=== PATIENT | male | born 1960 | race Caucasian/White ===

== ENCOUNTER → 2016-08-17 | Outpatient (CLI) | payer OTHER | LOC: RAD 14:10 | PROVIDERS: ATTEND Internal Medicine Gastroenterology | DX: K70.31 Alcoholic cirrhosis of liver with ascites (principal); R60.0 Localized edema; R97.8 Other abnormal tumor markers | CPT/HCPCS: 74183; A9576 ==

== ENCOUNTER 2016-09-13 07:17 | Day surgery (SDC) | payer OTHER ==
[~2016-09-13 07:17] MED LIST: ALBUMIN HUMAN 250 ML IV PRN
[2016-09-13 08:34] LABS: HEMATOCRIT 36.8 % (37.9-51.0); HEMOGLOBIN 12.5 g/dL (13.5-17.0); HGB HCT DIFFERENCE 0.7; MEAN CORPUSCULAR HEMOGLOBIN 33.7 pg (27.0-33.4); MEAN CORPUSCULAR VOLUME 99 fl (80-97); RED BLOOD COUNT 3.71 10^6/uL (4.35-5.55); RED CELL DISTRIBUTION WIDTH 15.4 % (11.5-14.0); WHITE BLOOD COUNT 7.6 10^3/uL (4.0-10.5)
[2016-09-13 08:45] LABS: PROTHROMBIN TIME 14.9 SEC (11.4-15.4)
[2016-09-13 08:46] LABS: PARTIAL THROMBOPLASTIN TIME 31.4 SEC (23.5-35.8)
[2016-09-13 08:50] LABS: BLOOD UREA NITROGEN 9 mg/dL (7-20); CREATININE RESULT 0.77 mg/dL (0.52-1.25)
[2016-09-13 12:16] LABS: FLUID APPEARANCE HAZY; FLUID RBC SIDE 1 202; FLUID RBC SIDE 2 194; FLUID TYPE PERITONEAL
[2016-09-13 12:17] LABS: FLUID RBC DILUENT USED NONE USED; FLUID RBC DILUTION FACTOR 1; TOTAL RBC SQUARES COUNTED FLD 25
[2016-09-13 14:47] VITALS: BP 131/93
== END 2016-09-13 13:10 | disposition home or self-care (01) ==
LOC: RAD 07:17
PROVIDERS: ATTEND Internal Medicine Gastroenterology
PROC: 0W9G3ZZ Drainage of Peritoneal Cavity, Percutaneous Approach (ICD-10-PCS; principal; 2016-09-13)
DX: K70.31 Alcoholic cirrhosis of liver with ascites (principal); I10 Essential (primary) hypertension; F10.20 Alcohol dependence, uncomplicated; I85.00 Esophageal varices without bleeding; Z96.651 Presence of right artificial knee joint; K42.9 Umbilical hernia without obstruction or gangrene; I51.9 Heart disease, unspecified; I48.91 Unspecified atrial fibrillation; Z88.2 Allergy status to sulfonamides; Z91.19 Patient's noncompliance with other medical treatment and regimen; Z79.82 Long term (current) use of aspirin; Z79.899 Other long term (current) drug therapy
CPT/HCPCS: 36415; 84520; 82565; 85027; 85610; 85730; 89050; 82042; 88162; 49083; P9047

== ENCOUNTER → 2016-09-30 | Outpatient (CLI) | payer OTHER ==
[2016-09-30 17:22] LABS: HEMOGLOBIN 13.1 g/dL (13.5-17.0); HGB HCT DIFFERENCE 0.3; MEAN CORPUSCULAR HEMOGLOBIN 34.1 pg (27.0-33.4); MEAN CORPUSCULAR HGB CONC 33.5 g/dL (32.0-36.0); MEAN CORPUSCULAR VOLUME 102 fl (80-97); RED BLOOD COUNT 3.83 10^6/uL (4.35-5.55); RED CELL DISTRIBUTION WIDTH 15.3 % (11.5-14.0)
[2016-09-30 17:34] LABS: PROTHROMBIN TIME 14.6 SEC (11.4-15.4)
[2016-09-30 17:43] LABS: ALANINE AMINOTRANSFERASE 29 U/L (21-72); ALBUMIN 3.2 g/dL (3.5-5.0); ALKALINE PHOSPHATASE 177 U/L (38-126); ANION GAP 16 (5-19); ASPARTATE AMINO TRANSFERASE 69 U/L (17-59); BILIRUBIN,DIRECT 1.2 mg/dL (0.0-0.4); BILIRUBIN,TOTAL 2.5 mg/dL (0.2-1.3); BLOOD UREA NITROGEN 20 mg/dL (7-20); CALCIUM 8.8 mg/dL (8.4-10.2); CARBON DIOXIDE 25 mmol/L (22-30); CHLORIDE 88 mmol/L (98-107); CREATININE RESULT 1.54 mg/dL (0.52-1.25); GLUCOSE 111 mg/dL (75-110); SODIUM 129.2 mmol/L (137-145); TOTAL PROTEIN 6.8 g/dL (6.3-8.2)
== END ==
LOC: LAB 17:10
PROVIDERS: ATTEND Physician Assistant Surgical
DX: K70.31 Alcoholic cirrhosis of liver with ascites (principal); R60.0 Localized edema
CPT/HCPCS: 36415; 80053; 85027; 85610

== ENCOUNTER 2016-10-14 11:22 | Emergency (ER) | payer OTHER ==
[2016-10-14] MEDS ORDERED: NORMAL SALINE 1000 ML 1,000 ML IV ONE (12:01)
--- NOTE | 2016-10-14 12:01 | ER Document Report ---
ED Medical Screen (RME) - General Chief Complaint: Abdominal Pain Stated Complaint: CHEST PAINS, PAIN AT UMBILICAL AREA Time Seen by Provider: 10/14/16 11:58 Notes: Patient with a history of end-stage liver disease and cirrhosis with severe intermittent ascites who has had large quantities of fluid drained from his abdomen in the past. He says he leaned over last week and felt his umbilicus "ruptured" and came out and began leaking fluid, which is has continued to do. He says on that initial day his weight went from 237 pounds 287 pounds, a loss of 50 pounds! He noticed some redness developing around the umbilicus last night. He has not been aware of any fever. TRAVEL OUTSIDE OF THE [place] IN LAST 30 DAYS: No - Related Data Allergies/Adverse Reactions: Sulfa (Sulfonamide Antibiotics) Adverse Reaction (Verified 09/10/16 14:42) Hives Past Medical History - Social History Chew tobacco use (# tins/day): Yes Frequency of alcohol use: Occasional Drug Abuse: None - Past Medical History Cardiac Medical History: Reports: Hx Coronary Artery Disease, Hx Hypertension Denies: Hx Heart Attack Pulmonary Medical History: Denies: Hx Asthma, Hx Bronchitis, Hx COPD, Hx Pneumonia Neurological Medical History: Reports: Hx Cerebrovascular Accident - unsure date. Denies: Hx Seizures Renal/ Medical History: Denies: Hx Peritoneal Dialysis Musculoskeltal Medical History: Reports Hx Arthritis - Immunizations Hx Diphtheria, Pertussis, Tetanus Vaccination: Yes Physical Exam - Vital signs Vitals: Temp Pulse Resp BP Pulse Ox 97.3 F 113 H 12 79/52 L 100 10/14/16 11:37 10/14/16 11:37 10/14/16 11:37 10/14/16 11:37 10/14/16 11:37 Course - Vital Signs Vital signs: Temp Pulse Resp BP Pulse Ox 97.3 F 113 H 12 79/52 L 100 10/14/16 11:37 10/14/16 11:37 10/14/16 11:37 10/14/16 11:37 10/14/16 11:37
[2016-10-14] MEDS ORDERED: NORMAL SALINE 1000 ML 1,000 ML IV PRN (12:08)
[2016-10-14] MEDS ORDERED: ERTAPENEM SODIUM INJ 1 GM VIAL IV ONE (12:08)
[2016-10-14 12:22] LABS: HEMOGLOBIN 13.3 g/dL (13.5-17.0); HGB HCT DIFFERENCE -0.1; MEAN CORPUSCULAR HEMOGLOBIN 33.5 pg (27.0-33.4); MEAN CORPUSCULAR HGB CONC 33.2 g/dL (32.0-36.0); MEAN CORPUSCULAR VOLUME 101 fl (80-97); RED BLOOD COUNT 3.97 10^6/uL (4.35-5.55); RED CELL DISTRIBUTION WIDTH 14.7 % (11.5-14.0); WHITE BLOOD COUNT 26.1 10^3/uL (4.0-10.5)
--- NOTE | 2016-10-14 12:32 | ER Document Report ---
ED General - General Chief Complaint: Abdominal Pain Stated Complaint: CHEST PAINS, PAIN AT UMBILICAL AREA Time Seen by Provider: 10/14/16 11:58 Mode of Arrival: Wheelchair Information source: Patient Notes: 55 yr old male hx of alcoholic ascites presents with complaints of abdominal pain. Pt admits to fevers, denies any chills. Pt notes he struck his abdomen 1 week ago and drained 50 lb of ascites. Pt found hypotensive and tachycardic. TRAVEL OUTSIDE OF THE [place] IN LAST 30 DAYS: No - HPI Onset: Last week Onset/Duration: Persistent Quality of pain: Achy Severity: Moderate Pain Level: 3 Associated symptoms: Fever, Weakness Exacerbated by: Movement Relieved by: Denies Similar symptoms previously: No Recently seen / treated by doctor: No - Related Data Allergies/Adverse Reactions: Sulfa (Sulfonamide Antibiotics) Adverse Reaction (Verified 09/10/16 14:42) Hives Past Medical History - Social History Smoking Status: Never Smoker Cigarette use (# per day): No Chew tobacco use (# tins/day): Yes Smoking Education Provided: No Frequency of alcohol use: Occasional Drug Abuse: None Family History: Reviewed & Not Pertinent - Past Medical History Cardiac Medical History: Reports: Hx Coronary Artery Disease, Hx Hypertension Denies: Hx Heart Attack Pulmonary Medical History: Denies: Hx Asthma, Hx Bronchitis, Hx COPD, Hx Pneumonia Neurological Medical History: Reports: Hx Cerebrovascular Accident - unsure date. Denies: Hx Seizures Renal/ Medical History: Denies: Hx Peritoneal Dialysis Musculoskeltal Medical History: Reports Hx Arthritis - Immunizations Hx Diphtheria, Pertussis, Tetanus Vaccination: Yes Review of Systems - Review of Systems Notes: PHYSICAL EXAMINATION: GENERAL: ill appearing male HEAD: Atraumatic, normocephalic. EYES: Pupils equal round and reactive to light, extraocular movements intact, sclera anicteric, conjunctiva are normal. ENT: Nares patent, oropharynx clear without exudates. Moist mucous membranes. NECK: Normal range of motion, supple without lymphadenopathy LUNGS: Breath sounds clear to auscultation bilaterally and equal. No wheezes rales or rhonchi. HEART: Regular rate and rhythm without murmurs ABDOMEN: umbilical redundant tissue is cellulitic with fluctuance. dozens of small maggots notes Musculoskeletal: Normal range of motion, no pitting or edema. No cyanosis. NEUROLOGICAL: Cranial nerves grossly intact. Normal speech, normal gait. Normal sensory, motor exams PSYCH: Normal mood, normal affect. Physical Exam - Vital signs Vitals: Temp Pulse Resp BP Pulse Ox 97.3 F 113 H 12 79/52 L 100 10/14/16 11:37 10/14/16 11:37 10/14/16 11:37 10/14/16 11:37 10/14/16 11:37 Course - Re-evaluation Re-evalutation: 10/14/16 12:32 I immediately contacted our surgeon after exposing the area and noting that patient has maggots. He is septic from this redundant tissue , hypotensive on arrival, iv fluid resuscitation immediately started 10/14/16 12:[address] [facility] [address] Henderson evaluated patient, spoke with hospitalist and requests transfer 10/14/16 13:29 Dr Morrissey [facility] has accepted patient 10/14/16 14:28 blood pressure has improved. - Vital Signs Vital signs: Temp Pulse Resp BP Pulse Ox 97.3 F 113 H 17 113/94 H 100 10/14/16 11:37 10/14/16 11:37 10/14/16 13:01 10/14/16 13:01 10/14/16 13:01 - Laboratory Result Diagrams: 10/14/16 12:00 10/14/16 12:00 Laboratory results interpreted by me: 10/14/16 10/14/16 10/14/16 12:00 12:00 12:00 WBC 26.1 H RBC 3.97 L Hgb 13.3 L MCV 101 H MCH 33.5 H RDW 14.7 H Band Neutrophils % 7 H Lymphocytes % (Manual) 5 L Metamyelocytes % 2 H Abs Neuts (Manual) 22.2 H Abs Monocytes (Manual) 2.3 H PT 16.2 H Sodium 123.7 L Chloride 86 L BUN 80 H Creatinine 3.46 H Est GFR ( Amer) 23 L Est GFR (Non-Af Amer) 19 L Glucose 121 H Total Bilirubin 2.2 H Direct Bilirubin 1.3 H Alkaline Phosphatase 138 H Albumin 2.8 L Lipase 467.6 H Discharge - Discharge Clinical Impression: Sepsis Qualifiers: Sepsis type: sepsis due to unspecified organism Qualified Code(s): A41.9 - Sepsis, unspecified organism Cellulitis Qualifiers: Site of cellulitis: trunk Site of cellulitis of trunk: abdominal wall Qualified Code(s): L03.311 - Cellulitis of abdominal wall Hypotension Qualifiers: Hypotension type: unspecified hypotension type Qualified Code(s): I95.9 - Hypotension, unspecified Ascites Qualifiers: Ascites type: due to alcoholic cirrhosis Qualified Code(s): K70.31 - Alcoholic cirrhosis of liver with ascites Condition: Critical [facility]position: [facility] Referrals: KELSI STRANGE PA-C [Primary Care Provider] - Follow up as needed
[2016-10-14 12:34] LABS: PROTHROMBIN TIME 16.2 SEC (11.4-15.4)
[2016-10-14 12:54] LABS: BAND NEUTROPHILS % (MANUAL) 7 % (3-5); BASOPHILS % (MANUAL) 0 % (0-2); EOSINOPHILS % (MANUAL) 0 % (0-6); LYMPHOCYTES % (MANUAL) 5 % (13-45); NUCLEATED RED BLOOD CELLS 1 /100 WBC (0); TOTAL CELLS COUNTED 100
[2016-10-14 12:59] LABS: ANISOCYTOSIS SLIGHT; PLATELET CLUMPS PRESENT; POLYCHROMASIA SLIGHT
[2016-10-14 13:08] LABS: ALANINE AMINOTRANSFERASE 27 U/L (21-72); ALBUMIN 2.8 g/dL (3.5-5.0); ALKALINE PHOSPHATASE 138 U/L (38-126); ANION GAP 13 (5-19); ASPARTATE AMINO TRANSFERASE 28 U/L (17-59); BILIRUBIN,DIRECT 1.3 mg/dL (0.0-0.4); BILIRUBIN,TOTAL 2.2 mg/dL (0.2-1.3); BLOOD UREA NITROGEN 80 mg/dL (7-20); CALCIUM 8.6 mg/dL (8.4-10.2); CARBON DIOXIDE 25 mmol/L (22-30); CHLORIDE 86 mmol/L (98-107); CREATININE RESULT 3.46 mg/dL (0.52-1.25); GLUCOSE 121 mg/dL (75-110); LIPASE 467.6 U/L (23-300); POTASSIUM 3.9 mmol/L (3.6-5.0); SODIUM 123.7 mmol/L (137-145); TOTAL PROTEIN 6.6 g/dL (6.3-8.2)
--- NOTE | 2016-10-14 13:48 | PDOC CONSULTATION ---
History of Present Illness Admission Date/PCP: KELSI STRANGE PA-C Patient complains of: Chest pain and drainage from umbilical hernia History of Present Illness: TYLER ARIAS is a 55 year old male with long history of alcoholic cirrhosis with ongoing alcohol abuse and refractory ascites requiring diuretic therapy and frequent admissions for paracentesis. Patient has required multiple admissions at [facility] for drainage of his ascites. He noticed last week rupture of the long-standing umbilical hernia with a resultant drainage of ascites. This region has developed erythema with ulceration inferiorly. He comes in today to the emergency department with complaints of substernal chest pain and abdominal discomfort. Unknown whether he has had any fever. He denies any prior history of gastrointestinal bleed. He had been on Plavix in the past but not currently. He has a history of atrial fib with a prior mini stroke in the past. He has had no prior abdominal surgeries. Past Medical History Cardiac Medical History: Reports: Atrial Fibrillation, Coronary Artery Disease, Hypertension Denies: Myocardial Infarction Pulmonary Medical History: Denies: Asthma, Bronchitis, Chronic Obstructive Pulmonary Disease (COPD), Pneumonia Neurological Medical History: Denies: Seizures GI Medical History: Reports: Cirrhosis Musculoskeltal Medical History: Reports: Arthritis Psychiatric Medical History: Reports: Alcohol Dependency Hematology: Denies: Anemia Past Surgical History Past Surgical History: Reports: Knee Replacement Social History Smoking Status: Never Smoker Frequency of Alcohol Use: Heavy Family History Parental Family History Reviewed: No Children Family History Reviewed: No Sibling(s) Family History Reviewed.: No Medication/Allergy Home Medications: Aspirin [Ecotrin 81 mg EC Tablet] 1 tab PO DAILY 09/13/16 Digoxin 1 tab PO DAILY 09/13/16 Diltiazem HCl [Diltiazem 12Hr ER] 1 tab PO BID 09/13/16 Furosemide [Lasix] 1 tab PO BID 09/13/16 Nadolol 1 tab PO DAILY 09/13/16 Omeprazole 1 tab PO DAILY 09/13/16 Zolpidem Tartrate [Ambien] 1 tab PO HSP PRN 09/13/16 Allergies/Adverse Reactions: Sulfa (Sulfonamide Antibiotics) Adverse Reaction (Verified 09/10/16 14:42) Hives Physical Exam Vital Signs: Temp Pulse Resp BP Pulse Ox 97.3 F 113 H 13 79/52 L 100 10/14/16 11:37 10/14/16 11:37 10/14/16 12:35 10/14/16 11:37 10/14/16 11:37 Intake & Output 10/13/16 10/14/16 10/15/16 06:59 06:59 06:59 Weight 81.8 kg General appearance: PRESENT: no acute distress, cooperative Respiratory exam: PRESENT: clear to auscultation carolyn Cardiovascular exam: PRESENT: irregular rhythm GI/Abdominal exam: PRESENT: other - Soft, very mild diffuse abdominal tenderness. Protuberant but not tight. Egg sized umbilical hernia with marked erythema with ulceration of the skin that is full-thickness but no active drainage at this time. Results Laboratory Results: 10/14/16 12:00 10/14/16 12:00 10/14/16 10/14/16 12:00 12:00 WBC 26.1 H RBC 3.97 L Hgb 13.3 L Hct 40.0 MCV 101 H MCH 33.5 H MCHC 33.2 RDW 14.7 H Plt Count 357 Seg Neutrophils % Not Reportable Lymphocytes % Not Reportable Monocytes % Not Reportable Eosinophils % Not Reportable Basophils % Not Reportable Absolute Neutrophils Not Reportable Absolute Lymphocytes Not Reportable Absolute Monocytes Not Reportable Absolute Eosinophils Not Reportable Absolute Basophils Not Reportable Sodium 123.7 L Potassium 3.9 Chloride 86 L Carbon Dioxide 25 Anion Gap 13 BUN 80 H Creatinine 3.46 H Est GFR ( Amer) 23 L Est GFR (Non-Af Amer) 19 L Glucose 121 H Calcium 8.6 Total Bilirubin 2.2 H AST 28 ALT 27 Alkaline Phosphatase 138 H Total Protein 6.6 Albumin 2.8 L Lipase 467.6 H Assessment & Plan - Diagnosis (1) Umbilical hernia Is this a current diagnosis for this admission?: YesPlan: Umbilical hernia with the skin necrosis and surrounding infection and sepsis in the setting of cirrhosis with refractory ascites. Patient has improved with the fluid resuscitation with clear mentation and systolic blood pressure of 110 now. patient has evidence of hepatorenal syndrome. Patient would be better served at a tertiary care hospital for medical management of his sepsis and complicated end-stage cirrhosis and surgical treatment of his umbilicla hernia. I have discussed this matter with the emergency room physician who will arrange transfer.
[2016-10-14] MEDS ORDERED: HYDROMORPHONE HCL INJ/PF 2 MG/ML AMPULE IV ONE ×2 (13:51→15:35)
[2016-10-14] MEDS: NORMAL SALINE 1000 ML 1,000 ML IV PRN ×2 (14:10→15:32)
[2016-10-14 14:30] LABS: VENOUS BLOOD BASE EXCESS -3.1 mmol/L; VENOUS BLOOD HCO3 23.5 mmol/L (20-32); VENOUS BLOOD PCO2 47.9 mmHg (35-63); VENOUS BLOOD PH 7.31 (7.30-7.42)
[2016-10-14 15:00] LABS: CREATINE KINASE MB 1.11 ng/mL (<4.55)
[2016-10-14 15:06] LABS: TROPONIN I < 0.012 ng/mL
[2016-10-14 15:36] VITALS: BP 103/82
--- NOTE | 2016-10-14 18:32 | EKG REPORT ---
SEVERITY:- ABNORMAL ECG - ATRIAL FIBRILLATION, V-RATE 71-109 : Confirmed by: Elder Henley MD 14-Oct-2016 18:31:38
== END 2016-10-14 15:45 | disposition short-term general hospital (02) ==
LOC: ER 11:22
DX: A41.9 Sepsis, unspecified organism (principal); L03.311 Cellulitis of abdominal wall; K70.31 Alcoholic cirrhosis of liver with ascites; I95.9 Hypotension, unspecified; R50.9 Fever, unspecified; R00.0 Tachycardia, unspecified; R53.1 Weakness; I25.10 Atherosclerotic heart disease of native coronary artery without angina pectoris; I10 Essential (primary) hypertension; Z86.73 Personal history of transient ischemic attack (TIA), and cerebral infarction without residual deficits
CPT/HCPCS: 93005; 96376; 99285; 96375; 96365; 36415; 87040; 82553; 82550; 83690; 85025; 85610; 80053; 84484; 82803; 83605; 93010; J1335; J1170; J7030

== ENCOUNTER 2016-12-10 03:54 | Inpatient (IN) | payer OTHER ==
--- NOTE | 2016-12-10 05:38 | ER Document Report ---
ED Medical Screen (RME) - General Chief Complaint: Leg Swelling Stated Complaint: FALL Time Seen by Provider: 12/10/16 05:28 Mode of Arrival: Medic Information source: Patient Notes: 56-year-old male presents to ED due to increased swelling in bilateral lower legs with weeping for the last 2 days. He states he did not take his Lasix 3 days last week but he knows that he took it Tuesday and of this week take 60 mg a day. He is has ascites that has not been tapped in the last 6 weeks and he says that it is starting to get to the point where he needs to have the fluid drained. His lungs are clear at this time but he does have 4 + pitting edema with weeping especially to the right leg. I have greeted and performed a rapid initial assessment of this patient. A comprehensive ED assessment and evaluation of the patient, analysis of test results and completion of medical decision making process will be conducted by an additional ED providers. TRAVEL OUTSIDE OF THE [place] IN LAST 30 DAYS: No - HPI Associated Symptoms: Leg swelling - 4+ with sleeping, Other - Abdomen is very distended ascites Exacerbated by: Walking Similar symptoms previously: Yes - Related Data Allergies/Adverse Reactions: Sulfa (Sulfonamide Antibiotics) Adverse Reaction (Verified 09/10/16 14:42) Andressa Past Medical History - Past Medical History Cardiac Medical History: Reports: Hx Atrial Fibrillation, Hx Coronary Artery Disease, Hx Hypertension Denies: Hx Heart Attack Pulmonary Medical History: Denies: Hx Asthma, Hx Bronchitis, Hx COPD, Hx Pneumonia Neurological Medical History: Reports: Hx Cerebrovascular Accident - unsure date. Denies: Hx Seizures Renal/ Medical History: Denies: Hx Peritoneal Dialysis GI Medical History: Reports: Hx Cirrhosis Musculoskeltal Medical History: Reports Hx Arthritis - Immunizations Hx Diphtheria, Pertussis, Tetanus Vaccination: Yes Physical Exam - Vital signs Vitals: Temp Pulse Resp BP Pulse Ox 97.5 F 103 H 20 130/103 H 100 12/10/16 04:04 12/10/16 04:04 12/10/16 04:04 12/10/16 04:04 12/10/16 04:04 Course - Vital Signs Vital signs: Temp Pulse Resp BP Pulse Ox 97.5 F 103 H 20 130/103 H 100 12/10/16 04:04 12/10/16 04:04 12/10/16 04:04 12/10/16 04:04 12/10/16 04:04
[2016-12-10] MEDS ORDERED: ERTAPENEM SODIUM INJ 1 GM VIAL IV ONE (06:18)
--- NOTE | 2016-12-10 06:19 | ER Document Report ---
ED General - General Chief Complaint: Leg Swelling Stated Complaint: FALL Time Seen by Provider: 12/10/16 05:28 Mode of Arrival: Medic Information source: Patient Notes: 56-year-old male history of ascites presents with complaints of lower extremity edema. Patient notes he thinks he has cellulitis. Denies any fevers but admits his legs feel warm to touch Patient last had paracentesis 6 weeks ago TRAVEL OUTSIDE OF THE [place] IN LAST 30 DAYS: No - HPI Onset: Yesterday Onset/Duration: Sudden Quality of pain: Achy Severity: Mild Pain Level: 1 Associated symptoms: Shortness of breath, Other Exacerbated by: Denies Relieved by: Denies Similar symptoms previously: Yes Recently seen / treated by doctor: Yes - Related Data Allergies/Adverse Reactions: Sulfa (Sulfonamide Antibiotics) Adverse Reaction (Verified 09/10/16 14:42) Hives Past Medical History - General Information source: Patient - Social History Smoking Status: Never Smoker Cigarette use (# per day): No Chew tobacco use (# tins/day): No Smoking Education Provided: No Family History: Reviewed & Not Pertinent Patient has suicidal ideation: No Patient has homicidal ideation: No - Past Medical History Cardiac Medical History: Reports: Hx Atrial Fibrillation, Hx Coronary Artery Disease, Hx Hypertension Denies: Hx Heart Attack Pulmonary Medical History: Denies: Hx Asthma, Hx Bronchitis, Hx COPD, Hx Pneumonia Neurological Medical History: Reports: Hx Cerebrovascular Accident - unsure date. Denies: Hx Seizures Renal/ Medical History: Denies: Hx Peritoneal Dialysis GI Medical History: Reports: Hx Cirrhosis Musculoskeltal Medical History: Reports Hx Arthritis - Immunizations Hx Diphtheria, Pertussis, Tetanus Vaccination: Yes Review of Systems - Review of Systems Notes: REVIEW OF SYSTEMS: CONSTITUTIONAL : Denies fever, chills, or sweats. Denies recent illness. EENT: Denies eye, ear, throat, or mouth pain or symptoms. Denies nasal or sinus congestion or discharge. Denies throat, tongue, or mouth swelling or difficulty swallowing. CARDIOVASCULAR: Denies chest pain. Denies palpitations or racing or irregular heart beat. Denies ankle edema. RESPIRATORY: Denies cough, cold, or chest congestion. Denies shortness of breath, difficulty breathing, or wheezing. GASTROINTESTINAL: abd distension GENITOURINARY: Denies difficulty urinating, painful urination, burning, frequency, blood in urine, or discharge. MUSCULOSKELETAL: Denies back or neck pain or stiffness. Denies joint pain or swelling. SKIN: lower extremity edema HEMATOLOGIC : Denies easy bruising or bleeding. LYMPHATIC: Denies swollen, enlarged glands. NEUROLOGICAL: Denies confusion or altered mental status. Denies passing out or loss of consciousness. Denies dizziness or lightheadedness. Denies headache. Denies weakness or paralysis or loss of use of either side. Denies problems with gait or speech. Denies sensory loss, numbness, or tingling. Denies seizures. PSYCHIATRIC: Denies anxiety or stress. Denies depression, suicidal ideation, or homicidal ideation. ALL OTHER SYSTEMS REVIEWED AND NEGATIVE. Dictation was performed using [employer] voice recognition software PHYSICAL EXAMINATION: GENERAL: overall ill appearing male HEAD: Atraumatic, normocephalic. EYES: Pupils equal round and reactive to light, extraocular movements intact, sclera anicteric, conjunctiva are normal. ENT: Nares patent, oropharynx clear without exudates. Moist mucous membranes. NECK: Normal range of motion, supple without lymphadenopathy LUNGS: coarse rhonchi left base HEART: Regular rate and rhythm without murmurs ABDOMEN: distended abdomen, fluid level noted Musculoskeletal: Normal range of motion, no pitting or edema. No cyanosis. NEUROLOGICAL: Cranial nerves grossly intact. Normal speech, normal gait. Normal sensory, motor exams PSYCH: Normal mood, normal affect. SKIN: bilateral pitting edemal +4 ., cellulites, with abdomen cellulites noted Physical Exam - Vital signs Vitals: Temp Pulse Resp BP Pulse Ox 97.5 F 103 H 20 130/103 H 100 12/10/16 04:04 12/10/16 04:04 12/10/16 04:04 12/10/16 04:04 12/10/16 04:04 Course - Re-evaluation Re-evalutation: 12/10/16 06:20 Patient has obvious cellulitis with 3+ pitting edema of bilateral lower extremities, he unfortunately also has cellulitis of his abdomen with concerns for peritonitis, he will be started on Invanz immediately patient will be admitted to the hospital 12/10/16 09:06 - Vital Signs Vital signs: Temp Pulse Resp BP Pulse Ox 97.5 F 103 H 14 125/88 H 100 12/10/16 04:04 12/10/16 04:04 12/10/16 07:00 12/10/16 06:30 12/10/16 07:00 - Laboratory Result Diagrams: 12/10/16 06:30 12/10/16 06:30 Laboratory results interpreted by me: 12/10/16 12/10/16 12/10/16 06:30 06:30 06:30 WBC 12.3 H RBC 3.10 L Hgb 9.3 L Hct 28.1 L RDW 15.4 H Lymphocytes % 11.9 L Absolute Neutrophils 9.5 H PT APTT Sodium 133.2 L Potassium 3.3 L BUN 25 H Creatinine 1.76 H Est GFR ( Amer) 49 L Est GFR (Non-Af Amer) 41 L Calcium 7.8 L Direct Bilirubin 0.6 H NT-Pro-B Natriuret Pep 5200 H Total Protein 6.0 L Albumin 2.7 L 12/10/16 06:30 WBC RBC Hgb Hct RDW Lymphocytes % Absolute Neutrophils PT 16.2 H APTT 40.3 H Sodium Potassium BUN Creatinine Est GFR ( Amer) Est GFR (Non-Af Amer) Calcium Direct Bilirubin NT-Pro-B Natriuret Pep Total Protein Albumin - Diagnostic Test Radiology reviewed: Image reviewed, Reports reviewed - Left pleural effusion Discharge - Discharge Clinical Impression: Spontaneous bacterial peritonitis, Pitting edema, Tachycardia, Pleural effusion Cellulitis Qualifiers: Site of cellulitis: extremity Site of cellulitis of extremity: lower extremity Laterality: unspecified laterality Qualified Code(s): L03.119 - Cellulitis of unspecified part of limb Condition: Stable Disposition: ADMITTED INPATIENT Admitting Provider: Hospitalist Unit Admitted: Telemetry
[2016-12-10 07:21] LABS: ABSOLUTE LYMPHOCYTES (AUTO) 1.5 10^3/uL (0.5-4.7); ABSOLUTE MONOCYTES (AUTO) 1.2 10^3/uL (0.1-1.4); ABSOLUTE NEUT (AUTO) 9.5 10^3/uL (1.7-8.2); BASOPHILS % (AUTO) 0.3 % (0-2); EOSINOPHILS % (AUTO) 0.3 % (0-6); HEMATOCRIT 28.1 % (37.9-51.0); HEMOGLOBIN 9.3 g/dL (13.5-17.0); HGB HCT DIFFERENCE -0.2; LYMPHOCYTES % (AUTO) 11.9 % (13-45); MEAN CORPUSCULAR HEMOGLOBIN 30.1 pg (27.0-33.4); MEAN CORPUSCULAR HGB CONC 33.2 g/dL (32.0-36.0); MEAN CORPUSCULAR VOLUME 91 fl (80-97); MONOCYTES % (AUTO) 9.9 % (3-13); RED CELL DISTRIBUTION WIDTH 15.4 % (11.5-14.0); SEGMENTED NEUTROPHILS % (AUTO) 77.6 % (42-78); WHITE BLOOD COUNT 12.3 10^3/uL (4.0-10.5)
--- NOTE | 2016-12-10 07:22 | RADIOLOGY REPORT (SQ) ---
EXAM DESCRIPTION: CHEST PA/LAT COMPLETED DATE/TIME: 12/10/2016 7:08 am REASON FOR STUDY: Ascites, bilateral leg edema COMPARISON: None. EXAM PARAMETERS: NUMBER OF VIEWS: two views TECHNIQUE: Digital Frontal and Lateral radiographic views of the chest acquired. RADIATION DOSE: NA LIMITATIONS: none FINDINGS: LUNGS AND PLEURA: Left basilar density with pleural effusion. Right lung relatively clear . MEDIASTINUM AND HILAR STRUCTURES: No masses or contour abnormalities. HEART AND VASCULAR STRUCTURES: Heart normal size. No evidence for failure. BONES: No acute findings. HARDWARE: None in the chest. OTHER: No other significant finding. IMPRESSION: LEFT PLEURAL EFFUSION. LEFT BASILAR ATELECTASIS VERSUS EARLY INFILTRATE. TECHNICAL DOCUMENTATION: JOB ID: [id number] [employer]- All Rights Reserved
[2016-12-10 07:25] LABS: PROTHROMBIN TIME 16.2 SEC (11.4-15.4)
[2016-12-10 07:26] LABS: PARTIAL THROMBOPLASTIN TIME 40.3 SEC (23.5-35.8)
[2016-12-10 07:27] LABS: ALANINE AMINOTRANSFERASE 28 U/L (21-72); ALBUMIN 2.7 g/dL (3.5-5.0); ALKALINE PHOSPHATASE 111 U/L (38-126); ANION GAP 10 (5-19); ASPARTATE AMINO TRANSFERASE 27 U/L (17-59); BILIRUBIN,DIRECT 0.6 mg/dL (0.0-0.4); BILIRUBIN,TOTAL 1.3 mg/dL (0.2-1.3); BLOOD UREA NITROGEN 25 mg/dL (7-20); CALCIUM 7.8 mg/dL (8.4-10.2); CARBON DIOXIDE 23 mmol/L (22-30); CHLORIDE 100 mmol/L (98-107); CREATININE RESULT 1.76 mg/dL (0.52-1.25); GLUCOSE 106 mg/dL (75-110); POTASSIUM 3.3 mmol/L (3.6-5.0); SODIUM 133.2 mmol/L (137-145)
[2016-12-10] MEDS ORDERED: ONDANSETRON HCL INJ/PF 4 MG/2 ML SDV IV PRN (07:39)
[2016-12-10] MEDS ORDERED: ZOLPIDEM TARTRATE 5 MG TABLET PO PRN (07:39)
[2016-12-10] MEDS ORDERED: ACETAMINOPHEN 325 MG TABLET PO PRN (07:39)
[2016-12-10] MEDS ORDERED: IPRATROPIUM/ALBUTEROL 0.5-2.5 MG/3 ML AMPUL NEB PRN (07:39)
[2016-12-10] MEDS ORDERED: LORAZEPAM INJ 2 MG/1 ML VIAL IV PRN (07:45)
[2016-12-10] MEDS ORDERED: VANCOMYCIN HCL 0 MG in DEXTROSE 5%-WATER 250 ML IV NR (08:00)
[2016-12-10] MEDS ORDERED: FUROSEMIDE INJ/PF 20 MG/2 ML SDV IV ONE (08:46)
[2016-12-10] MEDS ORDERED: POTASSIUM CHLORIDE 10 MEQ TABLET.SA PO ONE (08:47)
[2016-12-10 09:14] LABS: APPEARANCE,URINE CLEAR; BILIRUBIN,URINE NEGATIVE (NEGATIVE); GLUCOSE, URINE NEGATIVE (NEGATIVE); KETONES,URINE NEGATIVE (NEGATIVE); LEUKOCYTE ESTERASE,URINE NEGATIVE (NEGATIVE); NITRITE,URINE NEGATIVE (NEGATIVE); PROTEIN,URINE NEGATIVE (NEGATIVE); URINE SPECIFIC GRAVITY 1.016; UROBILINOGEN,URINE NEGATIVE mg/dL (<2.0)
[2016-12-10] MEDS ORDERED: FUROSEMIDE INJ/PF 40 MG/4 ML SDV IV ONE (09:30)
--- NOTE | 2016-12-10 11:28 | RADIOLOGY REPORT (SQ) ---
EXAM DESCRIPTION: U/S ABD PARACENTESIS COMPLETED DATE/TIME: 12/10/2016 11:12 am REASON FOR STUDY: ascites COMPARISON None. LIMITATIONS: None. PROCEDURE: After obtaining informed consent, the patient was brought to the ultrasound suite. The p rocedure was performed with the patient on a gurney. Ultrasound was used to identify a prominent poc ket of ascites in the right lower quadrant. An appropriate access site was selected. The patient wa s prepped and draped in usual sterile fashion. The access site was anesthetized with 10 mL 1% lidoc hayde. A Xvij-X-Mjjrtuoa needle was advanced into the fluid. After aspiration of fluid the needle, t he catheter was advanced off the needle into the fluid. A total of 9th out mL of sherif colored fluid was removed. The patient tolerated the procedure well left the department in satisfactory condition. IMPRESSION: Successful ultrasound-guided paracentesis COMMENT: Patient medication list reviewed: Yes Quality ID #[id number]: The patient was prepped and draped using maximum sterile barrier technique including cap, mask, sterile gown, sterile gloves, a large sterile sheet, hand hygiene, and 2% Chlorhexidine fo r cutaneous antisepsis. When ultrasound is used, sterile ultrasound techniques are followed requiring sterile gel and sterile probes. Quality ID #[id number]: Final reports for procedures using fluoroscopy that document radiation exposure baljinder sixto, or exposure time and number of fluorographic images (if radiation exposure indices are not avail able) TECHNICAL DOCUMENTATION: JOB ID: [id number] [employer]- All Rights Reserved
[2016-12-10] MEDS ORDERED: DIAZEPAM 5 MG TABLET PO SCH (12:00)
[2016-12-10 12:25] LABS: FLUID TYPE PERITONEAL
[2016-12-10 12:26] LABS: FLUID APPEARANCE HAZY; FLUID RBC AVERAGE 304.5; FLUID RBC DILUENT USED NONE USED; FLUID RBC DILUTION FACTOR 1; FLUID RBC SIDE 1 296; FLUID RBC SIDE 2 313; TOTAL RBC SQUARES COUNTED FLD 25
[2016-12-10] MEDS ORDERED: (PENDING PHARMACY ID) (Zolpidem Tartrate [Ambien] 10 MG) PO PRN (12:56)
[2016-12-10] MEDS: ALBUMIN HUMAN 50 ML IV SCH ×4 (13:00→15:50)
[2016-12-10] MEDS: VANCOMYCIN HCL 750 MG in DEXTROSE 5%-WATER 250 ML IV SCH ×2 (14:48→21:57)
[2016-12-10] MEDS: TRAMADOL HCL 50 MG TABLET PO PRN (14:48)
[2016-12-10] MEDS: POTASSI CL 20 MEQ/50 ML RIDER 50 ML IV SCH ×2 (14:49→16:44)
[2016-12-10] MEDS: PIPERACILLIN SODIUM/TAZOBACTAM 3.375 GM in NORMAL SALINE 100 ML IV SCH ×3 (14:49→23:53)
--- NOTE | 2016-12-10 15:30 | PDOC H&P ---
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 He was hospitalized 6 weeks ago in [place] to paracentesis 1 from 9 L of fluid removed and 1 for 5 L of fluid removed. He has abstained from alcohol since that time. Discharged on Aldactone and Lasix therapy he states he has not been taking the Lasix for the last several days because he lost the bottle. He notes his abdomen has also increased in size over the last 2 weeks. Nausea, vomiting, abdominal pain. Past Medical History Cardiac Medical History: Reports: Atrial Fibrillation, Coronary Artery Disease, Hypertension Denies: Myocardial Infarction Pulmonary Medical History: Denies: Asthma, Bronchitis, Chronic Obstructive Pulmonary Disease (COPD), Pneumonia EENT Medical History: Reports: None Neurological Medical History: Reports: None Denies: Seizures Endocrine Medical History: Reports: None Renal/ Medical History: Reports: None Malignancy Medical History: Reports: None GI Medical History: Reports: Cirrhosis, Gastroesophageal Reflux Disease Musculoskeltal Medical History: Reports: Arthritis Skin Medical History: Reports: None Psychiatric Medical History: Reports: Alcohol Dependency - He has abstained from alcohol the last 2 months he reports Traumatic Medical History: Reports: None Hematology: Reports: None Denies: Anemia Infectious Medical History: Reports: None Past Surgical History Past Surgical History: Reports: Orthopedic Surgery - Right knee replacement Social History Information Source: Patient Lives with: Family Smoking Status: Never Smoker Frequency of Alcohol Use: Heavy - He has abstained over the last 2 weeks Hx Recreational Drug Use: No Drugs: None Hx Prescription Drug Abuse: No - Advance Directive Resuscitation Status: Full Code Family History Family History: Hypertension Parental Family History Reviewed: Yes Children Family History Reviewed: NA Sibling(s) Family History Reviewed.: Yes Medication/Allergy Home Medications: Digoxin [Lanoxin 0.125 mg Tablet] 0.125 mg PO DAILY 12/10/16 Diltiazem HCl [Cardizem] 120 mg PO DAILY 12/10/16 Furosemide [Lasix] 40 mg PO BID 12/10/16 Nadolol [Corgard] 10 mg PO DAILY 12/10/16 Omeprazole [Omeprazole] 20 mg PO DAILY 12/10/16 Spironolactone [Aldactone 100 mg Tablet] 100 mg PO DAILY 12/10/16 Tramadol HCl [Ultram 50 mg Tablet] 50 mg PO Q8 PRN 12/10/16 Zolpidem Tartrate [Ambien] 10 mg PO HSP PRN 12/10/16 Allergies/Adverse Reactions: Sulfa (Sulfonamide Antibiotics) Adverse Reaction (Verified 09/10/16 14:42) Hives Review of Systems Constitutional: PRESENT: weakness. ABSENT: chills, fever(s), headache(s), weight gain, weight loss Eyes: ABSENT: visual disturbances Ears: ABSENT: hearing changes Cardiovascular: ABSENT: chest pain, dyspnea on exertion, edema, orthropnea, palpitations Respiratory: ABSENT: cough, hemoptysis Gastrointestinal: ABSENT: abdominal pain, constipation, diarrhea, hematemesis, hematochezia, nausea, vomiting Genitourinary: ABSENT: dysuria, hematuria Musculoskeletal: ABSENT: joint swelling Integumentary: ABSENT: rash, wounds Neurological: ABSENT: abnormal gait, abnormal speech, confusion, dizziness, focal weakness, syncope Psychiatric: ABSENT: anxiety, depression, homidical ideation, suicidal ideation Endocrine: ABSENT: cold intolerance, heat intolerance, polydipsia, polyuria Hematologic/Lymphatic: ABSENT: easy bleeding, easy bruising Physical Exam Vital Signs: Temp Pulse Resp BP Pulse Ox 97.5 F 90 16 123/90 H 99 12/10/16 11:42 12/10/16 13:57 12/10/16 13:57 12/10/16 11:42 12/10/16 11:42 Intake & Output 12/09/16 12/10/16 12/11/16 06:59 06:59 06:59 Weight 87.5 kg General appearance: PRESENT: no acute distress, well-developed, well-nourished Head exam: PRESENT: atraumatic, normocephalic Eye exam: PRESENT: conjunctiva pink, EOMI, PERRLA. ABSENT: scleral icterus Ear exam: PRESENT: normal external ear exam Mouth exam: PRESENT: moist, tongue midline Teeth exam: PRESENT: poor dentation Neck exam: ABSENT: carotid bruit, JVD, lymphadenopathy, thyromegaly Respiratory exam: PRESENT: decreased breath sounds, symmetrical, unlabored - right base Cardiovascular exam: PRESENT: irregular rhythm, +S1, +S2 Pulses: PRESENT: normal carotid pulses, normal radial pulses Vascular exam: PRESENT: normal capillary refill GI/Abdominal exam: PRESENT: ascites, hypoactive bowel sounds, soft Rectal exam: PRESENT: deferred Extremities exam: PRESENT: other - Anasarca of bilateral lower extremities Musculoskeletal exam: PRESENT: ambulatory Neurological exam: PRESENT: alert, awake, oriented to person, oriented to place , oriented to time, oriented to situation, CN II-XII grossly intact. ABSENT: motor sensory deficit Psychiatric exam: PRESENT: appropriate affect, normal mood. ABSENT: homicidal ideation, suicidal ideation Skin exam: PRESENT: dry, petechiae, warm Results Laboratory Results: 12/10/16 12/10/16 08:55 09:55 Urine Color YELLOW Urine Appearance CLEAR Urine pH 5.0 Ur Specific [place] 1.016 Urine Protein NEGATIVE Urine Glucose (UA) NEGATIVE Urine Ketones NEGATIVE Urine Blood NEGATIVE Urine Nitrite NEGATIVE Ur Leukocyte Esterase NEGATIVE Urine RBC (Auto) 0 Fluid Type PERITONEAL Fluid Source ASCITES Fluid Color YELLOW Fluid Appearance HAZY Fluid Viscosity LIQUID Fluid WBC 183 Fluid RBC 3045 Impressions: Chest X-Ray 12/10/16 05:39 IMPRESSION: LEFT PLEURAL EFFUSION. LEFT BASILAR ATELECTASIS VERSUS EARLY INFILTRATE. Paracentesis Ultrasound 12/10/16 08:44 IMPRESSION: Successful ultrasound-guided paracentesis Assessment & Plan - Diagnosis (1) Alcoholic cirrhosis of liver with ascites Is this a current diagnosis for this admission?: YesPlan: Patient underwent ultrasound-guided paracentesis with removal of 9 L of ascites fluid. Sent for culture and Gram stain (2) Cellulitis Qualifiers: Site of cellulitis: extremity Site of cellulitis of extremity: lower extremity Qualified Code(s): L03.119 - Cellulitis of unspecified part of limb Is this a current diagnosis for this admission?: YesPlan: Anasarca of lower extremities with cellulitis both anterior lower extremities. Blood cultures 2 were obtained yesterday Zosyn and vancomycin for cellulitis (3) Pitting edema Is this a current diagnosis for this admission?: YesPlan: Was given albumin 25% and then IV Lasix. He was started on twice daily Lasix (4) Spontaneous bacterial peritonitis Is this a current diagnosis for this admission?: Yes (5) Atrial fibrillation Qualifiers: Atrial fibrillation type: paroxysmal Qualified Code(s): I48.0 - Paroxysmal atrial fibrillation Is this a current diagnosis for this admission?: YesPlan: Patient is in sinus rhythm at the present time - Time Time Spent: 50 to 70 Minutes Critical Time spent with patient: 25-34 minutes Medications reviewed and adjusted accordingly: Yes
[2016-12-10] MEDS: LANSOPRAZOLE 30 MG TAB.RAP.DR PO SCH (18:00)
[2016-12-10] MEDS: FUROSEMIDE 40 MG TABLET PO SCH (18:01)
[2016-12-10] MEDS: ZOLPIDEM TARTRATE 5 MG TABLET PO PRN (21:58)
[2016-12-11 05:21] LABS: ABSOLUTE BASOPHILS # (AUTO) 0.1 10^3/uL (0.0-0.2); ABSOLUTE EOSINOPHILS # (AUTO) 0.1 10^3/uL (0.0-0.6); ABSOLUTE LYMPHOCYTES (AUTO) 1.7 10^3/uL (0.5-4.7); ABSOLUTE MONOCYTES (AUTO) 1.1 10^3/uL (0.1-1.4); ABSOLUTE NEUT (AUTO) 8.5 10^3/uL (1.7-8.2); BASOPHILS % (AUTO) 1.1 % (0-2); EOSINOPHILS % (AUTO) 0.5 % (0-6); HEMATOCRIT 31.3 % (37.9-51.0); HEMOGLOBIN 10.2 g/dL (13.5-17.0); HGB HCT DIFFERENCE -0.7; LYMPHOCYTES % (AUTO) 14.7 % (13-45); MEAN CORPUSCULAR HEMOGLOBIN 29.3 pg (27.0-33.4); MEAN CORPUSCULAR HGB CONC 32.6 g/dL (32.0-36.0); MEAN CORPUSCULAR VOLUME 90 fl (80-97); MONOCYTES % (AUTO) 9.8 % (3-13); RED BLOOD COUNT 3.48 10^6/uL (4.35-5.55); RED CELL DISTRIBUTION WIDTH 15.1 % (11.5-14.0); SEGMENTED NEUTROPHILS % (AUTO) 73.9 % (42-78); WHITE BLOOD COUNT 11.5 10^3/uL (4.0-10.5)
[2016-12-11 05:36] LABS: ALANINE AMINOTRANSFERASE 26 U/L (21-72); ALBUMIN 2.4 g/dL (3.5-5.0); ALKALINE PHOSPHATASE 77 U/L (38-126); ANION GAP 8 (5-19); ASPARTATE AMINO TRANSFERASE 21 U/L (17-59); BILIRUBIN,DIRECT 0.6 mg/dL (0.0-0.4); BILIRUBIN,TOTAL 1.2 mg/dL (0.2-1.3); BLOOD UREA NITROGEN 26 mg/dL (7-20); CALCIUM 7.6 mg/dL (8.4-10.2); CARBON DIOXIDE 22 mmol/L (22-30); CHLORIDE 103 mmol/L (98-107); CREATININE RESULT 1.67 mg/dL (0.52-1.25); GLUCOSE 94 mg/dL (75-110); MAGNESIUM 1.8 mg/dL (1.6-2.3); POTASSIUM 3.9 mmol/L (3.6-5.0); SODIUM 133.1 mmol/L (137-145); TOTAL PROTEIN 5.4 g/dL (6.3-8.2)
[2016-12-11 05:37] LABS: PROTHROMBIN TIME 16.2 SEC (11.4-15.4)
[2016-12-11] MEDS: LANSOPRAZOLE 30 MG TAB.RAP.DR PO SCH ×2 (06:12→18:15)
[2016-12-11] MEDS: PIPERACILLIN SODIUM/TAZOBACTAM 3.375 GM in NORMAL SALINE 100 ML IV SCH ×4 (06:13→23:36)
[2016-12-11] MEDS: FUROSEMIDE 40 MG TABLET PO SCH ×2 (09:54→18:15)
[2016-12-11] MEDS: DIGOXIN 0.125 MG TABLET PO SCH (09:54)
[2016-12-11] MEDS: SPIRONOLACTONE 25 MG TABLET PO SCH (09:54)
[2016-12-11] MEDS: VANCOMYCIN HCL 750 MG in DEXTROSE 5%-WATER 250 ML IV SCH ×2 (09:57→21:15)
[2016-12-11] MEDS ORDERED: LACTULOSE SYRUP 20 GM/30 ML UDCUP PO SCH (10:00)
[2016-12-11] MEDS ORDERED: SPIRONOLACTONE 25 MG TABLET PO SCH (10:00)
[2016-12-11] MEDS ORDERED: (PENDING PHARMACY ID) (Diltiazem Hcl [Cardizem] 120 MG) PO SCH (10:00)
[2016-12-11] MEDS ORDERED: (PENDING PHARMACY ID) (Spironolactone [Aldactone 100 Mg Tablet] 100 MG) PO SCH (10:00)
[2016-12-11] MEDS ORDERED: NADOLOL 10 MG PO SCH (10:00)
[2016-12-11] MEDS ORDERED: LACTULOSE SYRUP 20 GM/30 ML UDCUP PO ONE (10:30)
[2016-12-11] MEDS: DILTIAZEM HCL 120 MG CAP.SR.24H PO SCH (13:06)
[2016-12-11] MEDS: NADOLOL 40 MG TABLET PO SCH (13:07)
--- NOTE | 2016-12-11 14:17 | PDOC PROGRESS REPORT ---
Subjective Progress Note for:: 12/11/16 Subjective:: Patient is seen on morning rounds. He is resting comfortably in bed. He states his abdomen feels much better since paracentesis yesterday. Radiologist removed 9 liters of ascites fluids with ultrasound guidance. He states his legs are not as swollen either. He denies any nausea, abdominal pain or diarrhea. He has some back pain that is chronic. Remaining review of systems are negative. Physical Exam Vital Signs: Temp Pulse Resp BP Pulse Ox 98.7 F 107 H 16 109/72 97 12/11/16 10:49 12/11/16 13:25 12/11/16 13:25 12/11/16 10:49 12/11/16 13:25 Intake & Output 12/10/16 12/11/16 12/12/16 06:59 06:59 06:59 Intake Total 1687 450 Output Total 650 Balance 1037 450 Weight 99.1 kg General appearance: PRESENT: no acute distress, well-developed, well-nourished Head exam: PRESENT: atraumatic, normocephalic Eye exam: PRESENT: conjunctiva pink, EOMI, PERRLA. ABSENT: scleral icterus Ear exam: PRESENT: normal external ear exam Mouth exam: PRESENT: moist, tongue midline Neck exam: ABSENT: carotid bruit, JVD, lymphadenopathy, thyromegaly Respiratory exam: PRESENT: clear to auscultation carolyn. ABSENT: rales, rhonchi, wheezes Cardiovascular exam: PRESENT: RRR. ABSENT: diastolic murmur, rubs, systolic murmur Pulses: PRESENT: normal dorsalis pedis pul Vascular exam: PRESENT: normal capillary refill GI/Abdominal exam: PRESENT: ascites, hypoactive bowel sounds, soft Rectal exam: PRESENT: deferred Extremities exam: PRESENT: full ROM, pedal edema, tenderness - anterior bilateral lower extremities, +2 edema. ABSENT: calf tenderness, clubbing Musculoskeletal exam: PRESENT: ambulatory, full ROM, tenderness Neurological exam: PRESENT: alert, awake, oriented to person, oriented to place , oriented to time, oriented to situation, CN II-XII grossly intact. ABSENT: motor sensory deficit Psychiatric exam: PRESENT: flat affect Skin exam: PRESENT: dry, erythema - anterior bilateral lower extremity redness and swelling, intact, warm, other. ABSENT: cyanosis, rash Results Laboratory Results: 12/11/16 05:03 12/11/16 05:03 12/11/16 12/11/16 12/11/16 05:03 05:03 05:03 WBC 11.5 H RBC 3.48 L Hgb 10.2 L Hct 31.3 L MCV 90 MCH 29.3 MCHC 32.6 RDW 15.1 H Plt Count 298 Seg Neutrophils % 73.9 Lymphocytes % 14.7 Monocytes % 9.8 Eosinophils % 0.5 Basophils % 1.1 Absolute Neutrophils 8.5 H Absolute Lymphocytes 1.7 Absolute Monocytes 1.1 Absolute Eosinophils 0.1 Absolute Basophils 0.1 Sodium 133.1 L Potassium 3.9 Chloride 103 Carbon Dioxide 22 Anion Gap 8 BUN 26 H Creatinine 1.67 H Est GFR ( Amer) 52 L Est GFR (Non-Af Amer) 43 L Glucose 94 Calcium 7.6 L Magnesium 1.8 Total Bilirubin 1.2 AST 21 ALT 26 Alkaline Phosphatase 77 Ammonia 64.3 H Total Protein 5.4 L Albumin 2.4 L Impressions: Chest X-Ray 12/10/16 05:39 IMPRESSION: LEFT PLEURAL EFFUSION. LEFT BASILAR ATELECTASIS VERSUS EARLY INFILTRATE. Paracentesis Ultrasound 12/10/16 08:44 IMPRESSION: Successful ultrasound-guided paracentesis Assessment & Plan - Diagnosis (1) Alcoholic cirrhosis of liver with ascites Is this a current diagnosis for this admission?: YesPlan: Patient underwent ultrasound-guided paracentesis with removal of 9 L of ascites fluid. Sent for culture and Gram stain (2) Cellulitis Qualifiers: Site of cellulitis: extremity Site of cellulitis of extremity: lower extremity Qualified Code(s): L03.119 - Cellulitis of unspecified part of limb Is this a current diagnosis for this admission?: YesPlan: Anasarca of lower extremities with cellulitis both anterior lower extremities. Blood cultures 2 were obtained yesterday Zosyn and vancomycin for cellulitis (3) Hyperammonemia Is this a current diagnosis for this admission?: YesPlan: Secondary to cirrhosis. Will increase lactulose to 20 gm q6h (4) Pitting edema Is this a current diagnosis for this admission?: YesPlan: Was given albumin 25% and then IV Lasix. He was started on twice daily Lasix (5) Spontaneous bacterial peritonitis Is this a current diagnosis for this admission?: YesPlan: Ascites fluid shows no bacterial growth at 24 hrs (6) Atrial fibrillation Qualifiers: Atrial fibrillation type: paroxysmal Qualified Code(s): I48.0 - Paroxysmal atrial fibrillation Is this a current diagnosis for this admission?: YesPlan: Patient is normal sinus rhythm at the present time - Time Time Spent with patient: 25-34 minutes Critical Time spent with patient: 15-24 minutes Medications reviewed and adjusted accordingly: Yes
[2016-12-11] MEDS: LACTULOSE SYRUP 20 GM/30 ML UDCUP PO SCH ×2 (18:15→23:36)
[2016-12-11] MEDS: ZOLPIDEM TARTRATE 5 MG TABLET PO PRN (22:48)
[2016-12-12] MEDS: PIPERACILLIN SODIUM/TAZOBACTAM 3.375 GM in NORMAL SALINE 100 ML IV SCH ×3 (05:11→18:35)
[2016-12-12] MEDS: LANSOPRAZOLE 30 MG TAB.RAP.DR PO SCH ×2 (05:11→18:36)
[2016-12-12] MEDS: LACTULOSE SYRUP 20 GM/30 ML UDCUP PO SCH ×2 (05:11→18:36)
--- NOTE | 2016-12-12 10:50 | PDOC PROGRESS REPORT ---
Subjective Progress Note for:: 12/12/16 Subjective:: Patient is seen on morning rounds. He is resting comfortably in bed. He states he had an episode of explosive diarrhea after he had lactulose this morning. He states his legs are not as swollen either or as red and painful. He denies any nausea, or abdominal pain. He has some back pain that is chronic. Remaining review of systems are negative. Physical Exam Vital Signs: Temp Pulse Resp BP Pulse Ox 98.1 F 100 18 104/65 99 12/12/16 08:00 12/12/16 08:00 12/12/16 08:00 12/12/16 08:00 12/12/16 08:00 Intake & Output 12/11/16 12/12/16 12/13/16 06:59 06:59 06:59 Intake Total 1687 2229 Output Total 650 Balance 1037 2229 Weight 99.1 kg 96 kg General appearance: PRESENT: no acute distress, obese, well-developed, well- nourished Head exam: PRESENT: atraumatic, normocephalic Eye exam: PRESENT: conjunctiva pink, EOMI, PERRLA. ABSENT: scleral icterus Ear exam: PRESENT: normal external ear exam Mouth exam: PRESENT: moist, tongue midline Teeth exam: PRESENT: poor dentation Neck exam: ABSENT: carotid bruit, JVD, lymphadenopathy, thyromegaly Respiratory exam: PRESENT: clear to auscultation carolyn, symmetrical, unlabored Cardiovascular exam: PRESENT: RRR. ABSENT: diastolic murmur, rubs, systolic murmur Pulses: PRESENT: normal carotid pulses, normal radial pulses Vascular exam: PRESENT: normal capillary refill GI/Abdominal exam: PRESENT: ascites, normal bowel sounds, soft Rectal exam: PRESENT: deferred Extremities exam: PRESENT: full ROM. ABSENT: calf tenderness, clubbing, pedal edema Musculoskeletal exam: PRESENT: ambulatory, full ROM, tenderness - bilateral lower extremities Neurological exam: PRESENT: alert, awake, oriented to person, oriented to place , oriented to time, oriented to situation, CN II-XII grossly intact. ABSENT: motor sensory deficit Psychiatric exam: PRESENT: flat affect Skin exam: PRESENT: dry, intact, warm. ABSENT: cyanosis, rash Results Laboratory Results: 12/11/16 05:03 12/11/16 05:03 Impressions: Chest X-Ray 12/10/16 05:39 IMPRESSION: LEFT PLEURAL EFFUSION. LEFT BASILAR ATELECTASIS VERSUS EARLY INFILTRATE. Paracentesis Ultrasound 12/10/16 08:44 IMPRESSION: Successful ultrasound-guided paracentesis Assessment & Plan - Diagnosis (1) Alcoholic cirrhosis of liver with ascites Is this a current diagnosis for this admission?: YesPlan: Patient underwent ultrasound-guided paracentesis with removal of 9 L of ascites fluid on Tuesday. He may need a repeat paracentesis of consideration of a drain. He has not been compliant however with medical management of his disease. We also get palliative care consult (2) Cellulitis Qualifiers: Site of cellulitis: extremity Site of cellulitis of extremity: lower extremity Qualified Code(s): L03.119 - Cellulitis of unspecified part of limb Is this a current diagnosis for this admission?: YesPlan: Anasarca of lower extremities with cellulitis both anterior lower extremities. Blood cultures 2 were obtained yesterday Zosyn and vancomycin for cellulitis (3) Hyperammonemia Is this a current diagnosis for this admission?: YesPlan: Secondary to cirrhosis. Will increase lactulose to 20 gm q6h (4) Pitting edema Is this a current diagnosis for this admission?: YesPlan: Was given albumin 25% and then IV Lasix. He was started on twice daily Lasix (5) Spontaneous bacterial peritonitis Is this a current diagnosis for this admission?: YesPlan: Ascites fluid shows no bacterial growth at 24 hrs. He has no abdominal discomfort (6) Atrial fibrillation Qualifiers: Atrial fibrillation type: paroxysmal Qualified Code(s): I48.0 - Paroxysmal atrial fibrillation Is this a current diagnosis for this admission?: Yes - Time Time Spent with patient: 25-34 minutes Critical Time spent with patient: 15-24 minutes Medications reviewed and adjusted accordingly: Yes
[2016-12-12] MEDS: FUROSEMIDE 40 MG TABLET PO SCH (11:01)
[2016-12-12] MEDS: NADOLOL 40 MG TABLET PO SCH (11:01)
[2016-12-12] MEDS: DIGOXIN 0.125 MG TABLET PO SCH (11:01)
[2016-12-12] MEDS: SPIRONOLACTONE 25 MG TABLET PO SCH (11:02)
[2016-12-12] MEDS: VANCOMYCIN HCL 750 MG in DEXTROSE 5%-WATER 250 ML IV SCH ×2 (11:03→22:18)
[2016-12-12] MEDS: DILTIAZEM HCL 120 MG CAP.SR.24H PO SCH (15:30)
[2016-12-12] MEDS: ZOLPIDEM TARTRATE 5 MG TABLET PO PRN (22:18)
[2016-12-13] MEDS: PIPERACILLIN SODIUM/TAZOBACTAM 3.375 GM in NORMAL SALINE 100 ML IV SCH ×5 (01:29→23:18)
[2016-12-13] MEDS: LANSOPRAZOLE 30 MG TAB.RAP.DR PO SCH ×2 (05:37→18:54)
[2016-12-13 06:27] LABS: ABSOLUTE BASOPHILS # (AUTO) 0.1 10^3/uL (0.0-0.2); ABSOLUTE EOSINOPHILS # (AUTO) 0.1 10^3/uL (0.0-0.6); ABSOLUTE LYMPHOCYTES (AUTO) 1.8 10^3/uL (0.5-4.7); ABSOLUTE MONOCYTES (AUTO) 1.2 10^3/uL (0.1-1.4); ABSOLUTE NEUT (AUTO) 7.9 10^3/uL (1.7-8.2); BASOPHILS % (AUTO) 1.3 % (0-2); LYMPHOCYTES % (AUTO) 16.1 % (13-45); MEAN CORPUSCULAR HEMOGLOBIN 29.2 pg (27.0-33.4); MEAN CORPUSCULAR HGB CONC 32.4 g/dL (32.0-36.0); MEAN CORPUSCULAR VOLUME 90 fl (80-97); MONOCYTES % (AUTO) 10.4 % (3-13); RED BLOOD COUNT 3.44 10^6/uL (4.35-5.55); RED CELL DISTRIBUTION WIDTH 15.3 % (11.5-14.0); SEGMENTED NEUTROPHILS % (AUTO) 71.2 % (42-78); WHITE BLOOD COUNT 11.1 10^3/uL (4.0-10.5)
[2016-12-13 06:34] LABS: PROTHROMBIN TIME 15.7 SEC (11.4-15.4)
[2016-12-13 06:44] LABS: ALANINE AMINOTRANSFERASE 25 U/L (21-72); ALBUMIN 2.3 g/dL (3.5-5.0); ALKALINE PHOSPHATASE 68 U/L (38-126); ANION GAP 9 (5-19); ASPARTATE AMINO TRANSFERASE 21 U/L (17-59); BILIRUBIN,DIRECT 0.5 mg/dL (0.0-0.4); BILIRUBIN,TOTAL 1.1 mg/dL (0.2-1.3); BLOOD UREA NITROGEN 27 mg/dL (7-20); CALCIUM 7.6 mg/dL (8.4-10.2); CARBON DIOXIDE 20 mmol/L (22-30); CHLORIDE 105 mmol/L (98-107); CREATININE RESULT 1.98 mg/dL (0.52-1.25); GLUCOSE 85 mg/dL (75-110); MAGNESIUM 1.7 mg/dL (1.6-2.3); POTASSIUM 3.3 mmol/L (3.6-5.0); SODIUM 134.1 mmol/L (137-145); TOTAL PROTEIN 5.3 g/dL (6.3-8.2)
[2016-12-13] MEDS ORDERED: POTASSIUM CHLORIDE 10 MEQ TABLET.SA PO ONE (08:00)
[2016-12-13] MEDS: LACTULOSE SYRUP 20 GM/30 ML UDCUP PO SCH ×2 (09:15→18:54)
[2016-12-13] MEDS: NADOLOL 40 MG TABLET PO SCH (09:16)
[2016-12-13] MEDS: DILTIAZEM HCL 120 MG CAP.SR.24H PO SCH (09:17)
[2016-12-13] MEDS: DIGOXIN 0.125 MG TABLET PO SCH (09:17)
[2016-12-13] MEDS ORDERED: VANCOMYCIN HCL 500 MG in DEXTROSE 5%-WATER 100 ML IV SCH (10:00)
--- NOTE | 2016-12-13 11:44 | RADIOLOGY REPORT (SQ) ---
EXAM DESCRIPTION: U/S ABD PARACENTESIS COMPLETED DATE/TIME: 12/13/2016 11:07 am REASON FOR STUDY: Ascites COMPARISON None. LIMITATIONS: None. PROCEDURE: After obtaining informed consent, the patient was brought to the ultrasound suite. The p rocedure was performed with the patient on a gurney. Ultrasound was used to identify a prominent poc ket of ascites in the right lower quadrant. An appropriate access site was selected. The patient wa s prepped and draped in usual sterile fashion. The access site was anesthetized with 10 mL 1% lidoc hayde. A [id number] needle was advanced into the fluid. After aspiration of fluid the needle, t he catheter was advanced off the needle into the fluid. A total of 5,450 mL of straw-colored fluid w as removed. The patient tolerated the procedure well left the department in satisfactory condition. IMPRESSION: Successful ultrasound-guided paracentesis COMMENT: Patient medication list reviewed: Yes- Quality ID# [id number]:Eligible professional attests to doc umenting in the medical record they obtained, updated, or reviewed the patient's current medications. Quality ID #[id number]: The patient was prepped and draped using maximum sterile barrier technique including cap, mask, sterile gown, sterile gloves, a large sterile sheet, hand hygiene, and 2% Chlorhexidine fo r cutaneous antisepsis. When ultrasound is used, sterile ultrasound techniques are followed requiring sterile gel and sterile probes. Quality ID #[id number]: Final reports for procedures using fluoroscopy that document radiation exposure baljinder sixto, or exposure time and number of fluorographic images (if radiation exposure indices are not avail able) TECHNICAL DOCUMENTATION: JOB ID: [id number] [employer]- All Rights Reserved
[2016-12-13] MEDS: ALBUMIN HUMAN 50 ML IV SCH ×2 (12:00→12:52)
--- NOTE | 2016-12-13 13:10 | PDOC PROGRESS REPORT ---
Subjective Progress Note for:: 12/13/16 Subjective:: Patient is seen on morning rounds. He is resting comfortably in bed. He states he had an episode of explosive diarrhea after he had lactulose this morning. He states his legs are not as swollen either or as red and painful. He denies any nausea, or vomiting. He is starting to have abdominal fullness again. He has some back pain that is chronic. Remaining review of systems are negative. Physical Exam Vital Signs: Temp Pulse Resp BP Pulse Ox 97.7 F 103 H 18 109/67 99 12/13/16 07:53 12/13/16 03:30 12/13/16 07:53 12/13/16 07:53 12/13/16 07:53 Intake & Output 12/12/16 12/13/16 12/14/16 06:59 06:59 06:59 Intake Total 2229 1577 Output Total 450 Balance 2229 1127 Weight 96 kg 96.5 kg General appearance: PRESENT: no acute distress, well-developed, well-nourished Head exam: PRESENT: atraumatic, normocephalic Eye exam: PRESENT: conjunctiva pink, EOMI, PERRLA. ABSENT: scleral icterus Ear exam: PRESENT: normal external ear exam Mouth exam: PRESENT: moist, tongue midline Neck exam: ABSENT: carotid bruit, JVD, lymphadenopathy, thyromegaly Respiratory exam: PRESENT: clear to auscultation carolyn, symmetrical, unlabored. ABSENT: rales, rhonchi, wheezes Cardiovascular exam: PRESENT: RRR. ABSENT: diastolic murmur, rubs, systolic murmur Pulses: PRESENT: normal carotid pulses, normal radial pulses Vascular exam: PRESENT: normal capillary refill GI/Abdominal exam: PRESENT: ascites, firm, normal bowel sounds Rectal exam: PRESENT: deferred Extremities exam: PRESENT: full ROM, tenderness, +1 edema - Bilateral lower leg. ABSENT: calf tenderness, clubbing, pedal edema Musculoskeletal exam: PRESENT: ambulatory, full ROM, tenderness Neurological exam: PRESENT: alert, awake, oriented to person, oriented to place , oriented to time, oriented to situation, CN II-XII grossly intact. ABSENT: motor sensory deficit Psychiatric exam: PRESENT: flat affect Skin exam: PRESENT: dry - Bilateral lower extremities with resolving erythema from opened blistered area. His edema is significantly improved., erythema, vesicles, warm Results Laboratory Results: 12/13/16 06:16 12/13/16 06:16 12/13/16 12/13/16 12/13/16 06:16 06:16 06:16 WBC 11.1 H RBC 3.44 L Hgb 10.0 L Hct 31.0 L MCV 90 MCH 29.2 MCHC 32.4 RDW 15.3 H Plt Count 278 Seg Neutrophils % 71.2 Lymphocytes % 16.1 Monocytes % 10.4 Eosinophils % 1.0 Basophils % 1.3 Absolute Neutrophils 7.9 Absolute Lymphocytes 1.8 Absolute Monocytes 1.2 Absolute Eosinophils 0.1 Absolute Basophils 0.1 Sodium 134.1 L Potassium 3.3 L Chloride 105 Carbon Dioxide 20 L Anion Gap 9 BUN 27 H Creatinine 1.98 H Est GFR ( Amer) 43 L Est GFR (Non-Af Amer) 35 L Glucose 85 Calcium 7.6 L Magnesium 1.7 Total Bilirubin 1.1 AST 21 ALT 25 Alkaline Phosphatase 68 Ammonia 13.2 Total Protein 5.3 L Albumin 2.3 L 12/10/16 09:55 Ascities Fluid Gram Stain - Final Impressions: Chest X-Ray 12/10/16 05:39 IMPRESSION: LEFT PLEURAL EFFUSION. LEFT BASILAR ATELECTASIS VERSUS EARLY INFILTRATE. Paracentesis Ultrasound 12/13/16 00:00 IMPRESSION: Successful ultrasound-guided paracentesis Assessment & Plan - Diagnosis (1) Alcoholic cirrhosis of liver with ascites Is this a current diagnosis for this admission?: YesPlan: Patient underwent ultrasound-guided paracentesis with removal of 9 L of ascites fluid on Tuesday. He may need a repeat paracentesis of consideration of a drain. He has not been compliant however with medical management of his disease. We also get palliative care consult (2) Cellulitis Qualifiers: Site of cellulitis: extremity Site of cellulitis of extremity: lower extremity Qualified Code(s): L03.119 - Cellulitis of unspecified part of limb Is this a current diagnosis for this admission?: YesPlan: Anasarca of lower extremities with cellulitis both anterior lower extremities greatly improved since admission. Blood cultures 2 were obtained yesterday Zosyn and vancomycin for cellulitis (3) Hyperammonemia Is this a current diagnosis for this admission?: YesPlan: Secondary to cirrhosis. Will increase lactulose to 20 gm q6h (4) Pitting edema Is this a current diagnosis for this admission?: YesPlan: Was given albumin 25% and then IV Lasix. He was started on twice daily Lasix (5) Spontaneous bacterial peritonitis Is this a current diagnosis for this admission?: YesPlan: Ascites fluid shows no bacterial growth at 24 hrs. He has no abdominal discomfort (6) Hepatorenal syndrome Is this a current diagnosis for this admission?: Yes (7) Atrial fibrillation Qualifiers: Atrial fibrillation type: paroxysmal Qualified Code(s): I48.0 - Paroxysmal atrial fibrillation Is this a current diagnosis for this admission?: YesPlan: Patient is normal sinus rhythm at the present time (8) JONATHAN (acute kidney injury) Is this a current diagnosis for this admission?: YesPlan: Most likely prerenal from diuretics. Will hold and monitor - Time Time Spent with patient: 25-34 minutes Critical Time spent with patient: 15-24 minutes Medications reviewed and adjusted accordingly: Yes
[2016-12-13] MEDS: ZOLPIDEM TARTRATE 5 MG TABLET PO PRN (21:46)
[2016-12-14] MEDS: PIPERACILLIN SODIUM/TAZOBACTAM 3.375 GM in NORMAL SALINE 100 ML IV SCH (05:43)
[2016-12-14] MEDS: LANSOPRAZOLE 30 MG TAB.RAP.DR PO SCH ×2 (05:43→17:33)
[2016-12-14] MEDS: LACTULOSE SYRUP 20 GM/30 ML UDCUP PO SCH ×2 (10:14→17:32)
[2016-12-14] MEDS: NADOLOL 40 MG TABLET PO SCH (10:15)
[2016-12-14] MEDS: DIGOXIN 0.125 MG TABLET PO SCH (10:15)
[2016-12-14] MEDS: DILTIAZEM HCL 120 MG CAP.SR.24H PO SCH (10:15)
[2016-12-14] MEDS: FUROSEMIDE 40 MG TABLET PO SCH (10:16)
[2016-12-14] MEDS ORDERED: RIFAXIMIN 550 MG TABLET PO ONE (12:00)
[2016-12-14] MEDS ORDERED: POTASSIUM CHLORIDE 10 MEQ TABLET.SA PO ONE (12:00)
--- NOTE | 2016-12-14 14:09 | PROGRESS NOTE E ---
Progress Note NAME: TYLER ARIAS : 1960 AGE: 56Y DATE: 12/14/2016 ROOM: 322 SUBJECTIVE: The patient is currently lying in bed. The patient states that he does not feel that he can go home and states that he does need to go to facility as he is unable to take care of himself. The patient denies any nausea, vomiting. No diarrhea. Shortness of breath has improved, but does get short of breath with minimal activity. No dizziness, chest pain. No fevers, chills. The patient admits to some abdominal distention, and the patient does not voice any other concerns at this time. REVIEW OF SYSTEMS: Rest of review of systems negative. MEDICATIONS: Medications have been reviewed. OBJECTIVE: GENERAL: The patient is a 56-year-old male who is awake, alert, and oriented to person, place, time, and situation. He is verbal, conversational, does not appear to be in any acute distress. VITAL SIGNS: Temperature is 97.9, pulse 88, respirations 20, blood pressure is 109/63, oxygen saturation is 100% on room air. SKIN: Warm and dry. No rash. He is not diaphoretic. He is jaundiced. HEENT: Pupils are reactive. Sclera is icteric with JVP at level of the right clavicle. CARDIOVASCULAR SYSTEM: Heart is regular. There is no murmur or rub. CHEST: Clear, symmetrical, unlabored. ABDOMEN: Distended with ascites. There is no area of focal tenderness. BACK: There is no sacral edema. EXTREMITIES: No clubbing, cyanosis, edema. The patient still has redness of the lower extremities, but no definite warmth. PSYCHIATRIC: Pleasant mood, inappropriate affect as the patient does not appear to have insight to his current condition. DIAGNOSTICS: Lab values are as follows: Hematology obtained on 12/13/2016: WBC is 11.1, hemoglobin is 10, hematocrit is 31, platelet count is 278,000. Coagulation obtained on 12/13/2016: PT is 15.7, INR is 1.17. Chemistry obtained on 12/13/2016: Sodium is 134, potassium 3.3, chloride is 105, carbon dioxide 20, BUN 27, creatinine is 1.98, glucose 85, lactic acid is 1. Calcium is 7.6, magnesium is 1.7, direct bilirubin is 1.1. AST 21, ALT is 25, Alk phos 68, ammonia 13.2, total protein 5.3, albumin 2.3. IMPRESSION AND PLAN: 1. ALCOHOLIC CIRRHOSIS WITH ASCITES. The patient has undergone 2 paracentesis since admission. The patient has not been compliant with his medical disease in the past. Currently awaiting palliative care input. Will add the facts and given the patient's difficult and will follow. 2. CELLULITIS OF THE BILATERAL LOWER EXTREMITIES. Overall, this appears much improved. Will transition to oral antibiotic and follow. 3. HEPATORENAL SYNDROME. The patient's creatinine at this time appears stable. 4. ATRIAL FIBRILLATION. The patient is currently rate controlled. Will continue current medications. DISPOSITION: The patient is a DO NOT RESUSCITATE/DO NOT INTUBATE as the patient has expressed a desire for natural . Pending patient's symptomatology and diagnostic findings, will re-evaluate in the a.m. Time spent on this followup including assessment, plan, physical examination, patient education is 25 minutes. DICTATING PHYSICIAN: MARYANA WASHBURN NP [id number] PHY#: [id number] ID: [id number] JOB#: [id number] ACCT: [id number] cc: > MTDD
[2016-12-14] MEDS: AMOXICILLIN TR/POT CLAVULANATE 500-125 MG TAB PO SCH ×2 (14:24→21:37)
[2016-12-14] MEDS: RIFAXIMIN 550 MG TABLET PO SCH (17:32)
--- NOTE | 2016-12-14 17:41 | Palliative Consultation Report ---
Consultation From:: JOSE LUND Consult Reason: Palliative care - HPI HPI: Palliative Care Visit 12/14/16 12:30- 1:10 PM Appreciste referral for Palliative care for this 56 year old gentleman who has been admitted several times for end stage cirrhosis. He has requird frequent paracentesis in the past few weeks . He had one yesterday and when I came to see him, he was very drowsy from procedure. Although he just had 5400 ml of ascites draind yesterday, he says he already feels a lot of pressure in his abdomen and pain on right side of mid abdomen. He appearsquite distended with fluid also. he is awake and alert, with no complaints of sever pain, but says he has little appetite and no energy. Mr. Chaudhary lives alone in a 28 foot long camper which he says is plenty for him, but not big enough for anyone else. He doesnt have a lot of help and knows he is very weak. he would like to go to a rehab facility until he gets stronger after discharge from hospital.. He reports that he has not had any alcohol for 2 monthsand he hopes he will improve. He admits that the doctors give him little hope for that. In talking about his prognosis and condition, we did discuss advnce directives. H said if his heart stopped beating or he stopped brething, he would NOT want CPR or intubation. He said, If I get that bad, plese just let me go". I asked him if he wants to be DNR and he said yes. We discussed his needs for home and he reported that he has rollaider and regular walker and connot thinkof any other equipment or needs. He said he has a brother who visits, but he coud not tell me who gets his food for him or helps with his care. Mr. Chaudhary did a lot of life review, telling me about his work in [employer] and the amount of drinking he has done in his life, especially while doing that job. He said he knew what he was doing to himself and he is surprised that he has outlived many of his friends from that time. His goal is to live to be 62. Onset: Just prior to arrival Onset/Duration: Gradual Quality of Pain: Achy, Pressure Severity: Mild Pain Level: 2 Associated Symptoms: Weakness Exacerbated by: Movement, Food Past Medical History(Consults) - General Information Source: Patient, [facility] Records Home Medications: Digoxin [Lanoxin 0.125 mg Tablet] 0.125 mg PO DAILY 12/10/16 Diltiazem HCl [Cardizem] 120 mg PO DAILY 12/10/16 Furosemide [Lasix] 40 mg PO BID 12/10/16 Lactulose [Lactulose] 15 ml PO BID 12/10/16 Nadolol [Corgard] 10 mg PO DAILY 12/10/16 Omeprazole [Omeprazole] 20 mg PO DAILY 12/10/16 Spironolactone [Aldactone 100 mg Tablet] 100 mg PO DAILY 12/10/16 Tramadol HCl [Ultram 50 mg Tablet] 50 mg PO Q8 PRN 12/10/16 Zolpidem Tartrate [Ambien] 10 mg PO HSP PRN 12/10/16 Allergies/Adverse Reactions: Sulfa (Sulfonamide Antibiotics) Adverse Reaction (Verified 09/10/16 14:42) Hives - Social History Lives with: Family Family History: Hyperlipidemia, Hypertension Parental Family History Reviewed: No Children Family History Reviewed: No Sibling(s) Family History Reviewed.: No Smoking Status: Never Smoker Frequency of Alcohol Use: Heavy - He has abstained over the last 2 weeks Last Alcohol Use: 09/20/16 Hx Recreational Drug Use: No Drugs: None Hx Prescription Drug Abuse: No - Past Medical History Cardiac Medical History: Reports: Hx Atrial Fibrillation, Hx Coronary Artery Disease, Hx Hypertension Denies: Hx Heart Attack Pulmonary Medical History: Denies: Hx Asthma, Hx Bronchitis, Hx COPD, Hx Pneumonia EENT Medical History: Reports: None Neurological Medical History: Reports: None, Hx Cerebrovascular Accident - unsure date. Denies: Hx Seizures Endocrine Medical History: Reports: None Renal/ Medical History: Reports: None. Denies: Hx Peritoneal Dialysis Malignancy Medical History: Reports None GI Medical History: Reports: Hx Cirrhosis, Hx Gastroesophageal Reflux Disease, Hx Ulcer Musculoskeltal Medical History: Reports Hx Arthritis Skin Medical History: Reports None Traumatic Medical History: Reports: None Infectious Medical History: Reports: None Hematology: Reports: None Denies: Anemia - Surgical History Past Surgical History: Reports: Hx Orthopedic Surgery - Right knee replacement Review of systems All systems: reviewed and no additional remarkable complaints except as stated Constitutional: Malaise, Weakness Gastrointestinal: Abdomen distended, Nausea, Poor appetite Geniturinary: No symptoms reported Hematologic/Lymphatic: Easy bruising Neurological/Psychological: No symptoms reported Ojective:Exam Vital Signs: Temp Pulse Resp BP Pulse Ox 97.5 F 86 19 100/52 L 100 12/14/16 15:22 12/14/16 15:22 12/14/16 15:22 12/14/16 15:22 12/14/16 15:22 Intake & Output 12/13/16 12/14/16 12/15/16 06:59 06:59 06:59 Intake Total 1577 1200 356 Output Total 450 675 0 Balance 1127 525 356 Weight 96.5 kg - General General Appearance: Alert, Anxious In distress: Mild - HEENT Head: Normocephalic Eyes: Normal Mouth/Lips: Normal Mucous membrane: Normal - Respiratory Respiratory Status: No respiratory distress Breath sounds: Decreased air movement - Cardiovascular Rhythm: Regular - Abdominal Inspection: Other - lare with acites Distension: Distended - Extremities Upper extremity: Normal inspection - Psychological Associated symptoms: Normal affect, Anxious, Decreased appetite, Paranoid Objective-Diagnostic Laboratory: 12/13/16 06:16 12/13/16 06:16 12/10/16 09:55 Ascities Fluid Gram Stain - Final 12/10/16 09:55 Ascities Fluid Body Fluid Culture - Final NO AEROBIC OR ANAEROBIC ORGANISMS RECOVERED Plan and Recommendation Plan and Recommendation: Patient wants to go to Rehab after hospitalization, since he know he cannot function alone at home. Advance directives discussed, He vebalizes desire for DNR/DNI. Apprently he has spoken with Cruz Benton about this also. He is hopeful to live to 62, but realistic enough to know better. No complaints pain or other distress except pressure and decreased appetite. He reports increaed BM's with lactulose. Will follow for emotuonal support and symptoms if pain develops.. Thank you for allowing me to participate in care of this gentleman. - Time Spent with Patient Time spent with patient: 30 to 40 Minutes Time: 40
[2016-12-14] MEDS: ZOLPIDEM TARTRATE 5 MG TABLET PO PRN (21:37)
[2016-12-15] MEDS: LANSOPRAZOLE 30 MG TAB.RAP.DR PO SCH ×2 (06:03→16:03)
[2016-12-15] MEDS: AMOXICILLIN TR/POT CLAVULANATE 500-125 MG TAB PO SCH ×3 (06:03→22:44)
[2016-12-15] MEDS: NADOLOL 40 MG TABLET PO SCH (09:25)
[2016-12-15] MEDS: RIFAXIMIN 550 MG TABLET PO SCH ×2 (09:26→17:24)
[2016-12-15] MEDS: DIGOXIN 0.125 MG TABLET PO SCH (09:26)
[2016-12-15] MEDS: FUROSEMIDE 40 MG TABLET PO SCH (09:26)
[2016-12-15] MEDS: DILTIAZEM HCL 120 MG CAP.SR.24H PO SCH (09:26)
[2016-12-15] MEDS: LACTULOSE SYRUP 20 GM/30 ML UDCUP PO SCH (11:06)
--- NOTE | 2016-12-15 14:44 | PROGRESS NOTE E ---
Progress Note NAME: TYLER ARIAS : 1960 AGE: 56Y DATE: 12/14/2016 ROOM: 322 SUBJECTIVE: The patient is lying in bed. He states that he feels okay today. The patient has once again asked to have a decreased dosage of lactulose. I have instructed the patient that 3 loose stools a day is his goal. The patient is in agreement with this plan. The patient denies any nausea or vomiting, no diarrhea. Just admits to sleepiness. No shortness of breath, dizziness, chest pain. No fever or chills. The patient has been afebrile. His blood pressure has been in a good range. The patient did not voice any other concerns at this time. REVIEW OF SYSTEMS: Negative. MEDICATIONS: Medications reviewed with him today. OBJECTIVE: GENERAL: The patient is a 56-year-old male who is awake, alert and oriented to person, place and situation. He is verbal and conversational. Does not appear to be in any acute distress. VITAL SIGNS: Temperature is 98.4, pulse 94, respirations 20, blood pressure is 103/63, oxygen saturation is 99% on room air. SKIN: Warm and dry. No rash. Not diaphoretic. HEENT: Pupils are equal, round, reactive to light and accommodation. CARDIOVASCULAR SYSTEM: Heart is regular. There is no murmur or rub. CHEST: Clear, symmetrical, unlabored. ABDOMEN: Tight and distended. BACK: There is no CVA tenderness or sacral edema. EXTREMITIES: No clubbing, cyanosis, edema. Redness overall appears much improved. DIAGNOSTICS: Lab values are as follows: Hematology obtained on 12/13/2016: WBC is 11.1, hemoglobin is 10, hematocrit is 31, platelet count is 278,000. Chemistry obtained on 12/13/2016: Sodium is 134, potassium 3.3, chloride is 105, carbon dioxide 20, BUN 27, creatinine is 1.98, glucose 85. Calcium is 7.6. IMPRESSION AND PLAN: 1. ALCOHOLIC CIRRHOSIS WITH ASCITES. The patient has undergone 2 paracentesis since admission. Most likely he is going to need a third before he leaves. The patient has not been compliant at all with medical management in the past. Currently awaiting rehab placement. The patient has met with palliative care. He agrees to DNR/DNI status, but would like rehab. 2. CELLULITIS OF THE BILATERAL LOWER EXTREMITIES. Overall, much improved. He has tolerated transition to oral antibiotic well. 3. HEPATORENAL SYNDROME. The creatinine is back to baseline. 4. ATRIAL FIBRILLATION. The patient is rate controlled. Will continue current medications. DISPOSITION: The patient is a DO NOT RESUSCITATE/DO NOT INTUBATE. Pending patient's symptomatology and diagnostic findings, the patient can go to rehab as soon as a bed is available. The patient can be downgraded to a medical bed. Time spent on this followup including assessment, plan, physical examination, patient education is 25 minutes. DICTATING PHYSICIAN: MARYANA WASHBURN NP [id number] PHY#: [id number] ID: [id number] JOB#: [id number] ACCT: [id number] cc: > MTDD
[2016-12-15] MEDS: ZOLPIDEM TARTRATE 5 MG TABLET PO PRN (22:44)
[2016-12-15] MEDS: TRAMADOL HCL 50 MG TABLET PO PRN (22:50)
[2016-12-16] MEDS: AMOXICILLIN TR/POT CLAVULANATE 500-125 MG TAB PO SCH ×3 (06:47→21:46)
[2016-12-16] MEDS: LANSOPRAZOLE 30 MG TAB.RAP.DR PO SCH ×2 (06:48→16:52)
[2016-12-16 07:04] LABS: ANION GAP 9 (5-19); BLOOD UREA NITROGEN 25 mg/dL (7-20); CALCIUM 7.6 mg/dL (8.4-10.2); CARBON DIOXIDE 19 mmol/L (22-30); CHLORIDE 106 mmol/L (98-107); CREATININE RESULT 1.68 mg/dL (0.52-1.25); GLUCOSE 108 mg/dL (75-110); POTASSIUM 3.7 mmol/L (3.6-5.0); SODIUM 134.1 mmol/L (137-145)
[2016-12-16] MEDS: LACTULOSE SYRUP 20 GM/30 ML UDCUP PO SCH (10:56)
[2016-12-16] MEDS: DILTIAZEM HCL 120 MG CAP.SR.24H PO SCH (10:56)
[2016-12-16] MEDS: NADOLOL 40 MG TABLET PO SCH (10:57)
[2016-12-16] MEDS: FUROSEMIDE 40 MG TABLET PO SCH (10:57)
[2016-12-16] MEDS: RIFAXIMIN 550 MG TABLET PO SCH ×2 (10:58→17:47)
[2016-12-16] MEDS: SPIRONOLACTONE 25 MG TABLET PO SCH (10:59)
[2016-12-16] MEDS: DIGOXIN 0.125 MG TABLET PO SCH (10:59)
--- NOTE | 2016-12-16 13:03 | PROGRESS NOTE E ---
Progress Note NAME: TYLER ARIAS : 1960 AGE: 56Y DATE: 12/16/2016 ROOM: 322 SUBJECTIVE: The patient is lying in bed. The patient states that he absolutely needs a paracentesis, he cannot take it much more. The patient denies any nausea, vomiting, diarrhea. No shortness of breath, dizziness, chest pain. The patient stated that he stayed up all night watching westerns and patient overall is sleepy because of this. He states he is quite weak. The patient has been afebrile. Blood pressure has been in an improved range. The patient did not voice any other concerns at this time. REVIEW OF SYSTEMS: Rest of review of systems negative. MEDICATIONS: Medications have been reviewed. OBJECTIVE: GENERAL: The patient is a 56-year-old male who is awake, alert, and oriented to person, place, time, and situation. He is verbal and conversational. Does not appear to be in any acute distress. VITAL SIGNS FOLLOWS: Temperature 97.5, pulse 106, respirations 19, blood pressure 116/81, oxygen saturation is 100% on room air. SKIN: Warm and dry. He is cirrhotic. Not diaphoretic. HEENT: Pupils equal, round, reactive to light and accommodation. Sclerae are icteric. NECK: JVP is to the level of the right clavicle. HEART: Regular. There is no murmur or rub. CHEST: Clear, symmetrical, unlabored. ABDOMEN: Distended with ascites. No area of focal tenderness. EXTREMITIES: No clubbing, cyanosis, edema. PSYCHIATRIC: Appropriate affect. Pleasant mood. DIAGNOSTICS: Lab values are as follows: Hematology obtained on 12/13/2016: WBC 11.1, hemoglobin 10.0, hematocrit 31.0, platelet count 278,000. Chemistry obtained on 12/16/2016: Sodium 134, potassium 3.7, chloride 106, carbon dioxide 19, BUN 25, creatinine 1.68, glucose 108, calcium 7.6, magnesium 2.0. IMPRESSION AND PLAN: 1. ALCOHOLIC CIRRHOSIS WITH ASCITES. The patient has undergone 2 paracenteses since admission, however, he states that he feels he is about to bust and wants another. Will order this. The patient has been fluid restricted. He is on diuretics, as much as his blood pressure can tolerate. He has met with Palliative Care. Will follow. 2. CELLULITIS OF BILATERAL LOWER EXTREMITIES. Overall, much improved. The patient has transitioned to oral antibiotics and tolerated this. 3. HEPATORENAL SYNDROME. Creatinine is at his baseline. 4. ATRIAL FIBRILLATION. The patient is rate controlled. Will continue current medications. DISPOSITION: The patient is a DO NOT RESUSCITATE/DO NOT INTUBATE. The patient can go to SNF rehab as soon as a bed is available. Time spent on this followup including assessment, plan, physical examination, patient education is 25 minutes. DICTATING PHYSICIAN: MARYANA WASHBURN NP [id number] PHY#: [id number] ID: [id number] JOB#: [id number] ACCT: [id number] cc: >
--- NOTE | 2016-12-16 13:52 | RADIOLOGY REPORT (SQ) ---
EXAM DESCRIPTION: U/S ABD PARACENTESIS COMPLETED DATE/TIME: 12/16/2016 12:55 pm REASON FOR STUDY: Ascites COMPARISON None. LIMITATIONS: None. PROCEDURE: After obtaining informed consent, the patient was brought to the ultrasound suite. The p rocedure was performed with the patient on a gurney. Ultrasound was used to identify a prominent poc ket of ascites . An appropriate access site was selected. The patient was prepped and draped in usu al sterile fashion. The access site was anesthetized with 5 mL 1% lidocaine. A Uhhz-U-Cghlnovl nee dle was advanced into the fluid. After aspiration of fluid the needle, the catheter was advanced off the needle into the fluid. A total of 1,150 mL of yellow clear fluid was removed. The patient jakub ated the procedure well left the department in satisfactory condition. IMPRESSION: Successful ultrasound-guided paracentesis COMMENT: Patient medication list reviewed: Yes- Quality ID# [id number]:Eligible professional attests to doc umenting in the medical record they obtained, updated, or reviewed the patient's current medications. Quality ID #[id number]: The patient was prepped and draped using maximum sterile barrier technique including cap, mask, sterile gown, sterile gloves, a large sterile sheet, hand hygiene, and 2% Chlorhexidine fo r cutaneous antisepsis. When ultrasound is used, sterile ultrasound techniques are followed requiring sterile gel and sterile probes. Quality ID #[id number]: Final reports for procedures using fluoroscopy that document radiation exposure baljinder sixto, or exposure time and number of fluorographic images (if radiation exposure indices are not avail able) TECHNICAL DOCUMENTATION: JOB ID: [id number] [employer]- All Rights Reserved
[2016-12-16] MEDS: ZOLPIDEM TARTRATE 5 MG TABLET PO PRN (21:46)
--- NOTE | 2016-12-16 23:59 | Progress Note ---
Provider Note Provider Note: Follow up Palliative care note: Visit made from 2: 20-2:35PM S; Patient awake and uncomfortable. He states he had another paracentesis today but only 1100 ml fluid was obtained. He still feels very bloated and although he feels some better, he wishes more could have been removed. He is glad that he may be able to go to [facility] since this is where he was last time and was happy with the care there. He continues to hope for improvement, but does not talk about going home today. O: Resting in bed, reports being very sleepy. He does have some noted shortness of breath with much abd distention and fluid restricting lung expansion. Skin warm and dry, no jaundice noted. Neurologically in tact with no noted mental changes. Vital signs stable. A/P: Continued problems from cirrhosis with ascites causing discomfort and pressure. Appetite decreased from pressure of abdomen causing increased weakness and nutritional depletion. Will need to have care and is not able to live independently. Will suggest palliative care follow at [facility]. Appreciate opportunity to participate with care, will follow during this admission.
[2016-12-17] MEDS: AMOXICILLIN TR/POT CLAVULANATE 500-125 MG TAB PO SCH ×3 (05:38→21:46)
[2016-12-17] MEDS: LANSOPRAZOLE 30 MG TAB.RAP.DR PO SCH ×2 (05:38→17:25)
--- NOTE | 2016-12-17 09:23 | PROGRESS NOTE E ---
Progress Note NAME: TYLER ARIAS : 1960 AGE: 56Y DATE: 12/17/2016 ROOM: 322 SUBJECTIVE: The patient is currently lying in bed. He states that his abdomen still feels distended and full. The patient's paracentesis was quite difficult yesterday given that he has various pockets throughout his abdomen. There was a total of 1150 removed yesterday. The patient denies any nausea, vomiting, or diarrhea. No shortness of breath, dizziness, or chest pain. No fevers or chills. The patient has been afebrile. Blood pressure has been in a good range. Patient does not voice any other concerns at this time. REVIEW OF SYSTEMS: Rest of the review of systems negative. MEDICATIONS: Have been reviewed. OBJECTIVE: GENERAL: The patient is a 56-year-old male who is awake, alert, and oriented to person, place, time, and situation. He is verbal, conversational, and does not appear to be in acute distress. VITAL SIGNS: Temperature 98.2, pulse 101, respirations 20, blood pressure 105/72, oxygen saturation is 99% on room air. SKIN: Warm and dry. No rash. Not diaphoretic. He is jaundiced. HEENT: Pupils equal, round, reactive to light and accommodation. Conjunctivae are pink. Sclerae are icterus. There is no JVP. CARDIOVASCULAR: Heart is irregularly irregular with no murmur or rub. CHEST: Diminished, symmetrical, unlabored. ABDOMEN: Distended, taunt. No area of focal tenderness. BACK: No CVA tenderness or sacral edema. EXTREMITIES: No clubbing or cyanosis. Trace bilateral lower extremity edema. Redness overall has improved. PSYCHIATRIC: Appropriate affect. Pleasant mood. DIAGNOSTICS: Lab values are as follows: Hematology obtained on 12/13/2016: WBC 11.1, hemoglobin 10.0, hematocrit 31.0, platelet count 278,000. Chemistry obtained on 12/16/2016: Sodium 134, potassium 3.7, chloride 103, carbon dioxide 19, BUN 25, creatinine 1.68, glucose 108, calcium 7.6, magnesium 2.0. IMPRESSION AND PLAN: 1. ALCOHOLIC CIRRHOSIS WITH ASCITES. The patient has undergone 3 paracenteses since admission. The patient is on as much diuretic as his blood pressure can handle. He has met with Palliative Care. Will follow. 2. CELLULITIS OF BILATERAL LOWER EXTREMITIES. Overall improved. Continue oral antibiotics. 3. HEPATORENAL SYNDROME. Creatinine is not at baseline. 4. ATRIAL FIBRILLATION. The patient is rate controlled. Continue current medications. 5. PREVIOUS UMBILICAL HERNIA REPAIR. The patient did have umbilical hernia repair. Uncertain how long ago it was but it appears that the sutures have been completely grown over. There is a trace of a suture noted at the right end of the incision. Do not feel comfortable trying to remove these given the amount of growth that has been done. Will consult Surgery. DISPOSITION: The patient is a DNR/DNI. The patient can go to rehab as soon as a bed is available. Time spent on this followup including assessment, plan, physical examination, and patient education is 25 minutes. DICTATING PHYSICIAN: MARYANA WASHBURN NP [id number] PHY#: [id number] ID: [id number] JOB#: [id number] ACCT: [id number] cc: >
[2016-12-17] MEDS: LACTULOSE SYRUP 20 GM/30 ML UDCUP PO SCH (09:43)
[2016-12-17] MEDS: DIGOXIN 0.125 MG TABLET PO SCH (09:44)
[2016-12-17] MEDS: FUROSEMIDE 40 MG TABLET PO SCH (09:45)
[2016-12-17] MEDS: RIFAXIMIN 550 MG TABLET PO SCH ×2 (09:45→17:25)
[2016-12-17] MEDS: DILTIAZEM HCL 120 MG CAP.SR.24H PO SCH (13:47)
[2016-12-17] MEDS: NADOLOL 40 MG TABLET PO SCH (13:48)
[2016-12-17] MEDS: SPIRONOLACTONE 25 MG TABLET PO SCH (13:49)
--- NOTE | 2016-12-17 16:53 | OPERATIVE REPORT E ---
Operative Report NAME: TYLER ARIAS : 1960 AGE: 56Y DATE OF SURGERY: 12/17/2016 ROOM: 322 PREOPERATIVE DIAGNOSIS: Post repair of umbilical hernia with a couple of sutures palpable. POSTOPERATIVE DIAGNOSIS: Post repair of umbilical hernia with a couple of sutures palpable. OPERATION: Removal of two sutures on the umbilical area. SURGEON: KEVIN MARIN M.D. 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 Patient tells me that he had umbilical hernia repaired here, however, I look at the records and I do not have anything recorded as far as the umbilical hernia repair. I finally talked to the nurse and the nurse thinks that patient is somewhat confused and likely had his hernia done at [facility] several months ago. PROCEDURE: The abdominal area was then prepped with Betadine and palpable suture around the umbilicus on the left lateral area was noted to be sticking out. This was then cut. There might be some more palpable sutures underneath the skin but no evidence of infection. The same thing on the right side. There is a very small suture sticking out. It was subsequently pulled out and cut. The area underneath was palpable of potential another suture but in view of the fact that there was no evidence of infection at this time, I left the rest of the sutures under the skin left for now. The wound was then swabbed with Betadine solution and a band-aid placed over the two sites around the umbilical repair site. Patient claims no mesh was put in. His umbilicus was surgically removed. Call us back if any evidence of infection develops or redness around the umbilical areas are noted. DICTATING PHYSICIAN: KEVIN MARIN M.D. [id number] PHY#: [id number] ID: [id number] JOB#: [id number] ACCT: [id number] cc:KEVIN MARIN M.D. > MTDD
[2016-12-17] MEDS: ZOLPIDEM TARTRATE 5 MG TABLET PO PRN (21:46)
[2016-12-18] MEDS: LANSOPRAZOLE 30 MG TAB.RAP.DR PO SCH ×2 (05:47→17:45)
[2016-12-18] MEDS: AMOXICILLIN TR/POT CLAVULANATE 500-125 MG TAB PO SCH ×3 (05:47→21:50)
[2016-12-18] MEDS: DILTIAZEM HCL 120 MG CAP.SR.24H PO SCH (08:45)
[2016-12-18] MEDS: DIGOXIN 0.125 MG TABLET PO SCH (08:46)
[2016-12-18] MEDS: FUROSEMIDE 40 MG TABLET PO SCH (08:46)
[2016-12-18] MEDS: RIFAXIMIN 550 MG TABLET PO SCH ×2 (08:47→17:45)
--- NOTE | 2016-12-18 10:34 | PROGRESS NOTE E ---
Progress Note NAME: TYLER ARIAS : 1960 AGE: 56Y DATE: 12/18/2016 ROOM: 322 SUBJECTIVE: The patient is currently lying in bed. He states that he is quite tired today. He does not feel that well. States he is having abdominal tightness. The patient denies any nausea, vomiting, or diarrhea. No shortness of breath, dizziness, or chest pain. No fever or chills. The patient has been afebrile. His blood pressure has been in a good range. The patient does not voice any other concerns at this time. REVIEW OF SYSTEMS: Rest of the review of systems negative. MEDICATIONS: Have been reviewed. OBJECTIVE: GENERAL: The patient is a 56-year-old male who is awake, alert, and oriented to person, place, time, and situation. He is verbal and conversational. He is delayed, extremely forgetful, and does not appear to be in acute distress. VITAL SIGNS: Temperature 98.7, pulse 78, respirations 16, blood pressure 111/71, oxygen saturation is 97% on room air. SKIN: Warm and dry. He is jaundiced. Not diaphoretic. HEENT: Pupils are equal, round, reactive to light and accommodation. Conjunctivae are pink. No JVP. CARDIOVASCULAR: Heart is regular with no murmur or rub. CHEST: Clear, symmetrical, unlabored. ABDOMEN: Distended with ascites. No area of focal tenderness. BACK: No CVA tenderness or sacral edema. EXTREMITIES: No clubbing, cyanosis, or edema. PSYCHIATRIC: Appropriate affect. DIAGNOSTICS: Lab values are as follows: Hematology obtained on 12/13/2016: WBC 11.1, hemoglobin 10.0, hematocrit 31.0, platelet count 278,000. Chemistry obtained on 12/16/2016: Sodium 134, potassium 3.7, chloride 106, carbon dioxide 19, BUN 25, creatinine 1.68, glucose 108, calcium 7.6, magnesium 2.0. IMPRESSION AND PLAN: 1. ALCOHOLIC CIRRHOSIS WITH ASCITES. The patient has undergone 3 paracenteses since admission. The patient is on as much diuretic as he can handle. He has met with Palliative Care. Continue to follow. 2. CELLULITIS OF BILATERAL LOWER EXTREMITIES. Overall this is improved. Continue oral antibiotics. 3. HEPATORENAL SYNDROME. Creatinine is at baseline. 4. ATRIAL FIBRILLATION. The patient is rate controlled. Continue current medications. 5. PREVIOUS UMBILICAL HERNIA REPAIR. This has been it appears months ago. The sutures were still in place. Do appreciate Surgery looking at it yesterday. Going to leave the ingrown sutures in place for now as it does not have any evidence of infection and follow. DISPOSITION: The patient is a DNR/DNI. The patient can go to rehab as soon as a bed is available. The patient has been downgraded to a medical bed. Time spent on this followup including assessment, plan, physical examination, patient education is 20 minutes. DICTATING PHYSICIAN: MARYANA WASHBURN NP [id number] PHY#: [id number] ID: [id number] JOB#: [id number] ACCT: [id number] cc: >
[2016-12-18] MEDS: NADOLOL 40 MG TABLET PO SCH (13:52)
[2016-12-18] MEDS: SPIRONOLACTONE 25 MG TABLET PO SCH (13:52)
[2016-12-18] MEDS: LACTULOSE SYRUP 20 GM/30 ML UDCUP PO SCH (13:53)
[2016-12-18] MEDS ORDERED: FUROSEMIDE 20 MG TABLET PO ONE (14:00)
[2016-12-18] MEDS: ZOLPIDEM TARTRATE 5 MG TABLET PO PRN (21:49)
[2016-12-19] MEDS: AMOXICILLIN TR/POT CLAVULANATE 500-125 MG TAB PO SCH ×3 (06:29→22:50)
[2016-12-19] MEDS: LANSOPRAZOLE 30 MG TAB.RAP.DR PO SCH ×2 (06:29→17:03)
[2016-12-19] MEDS ORDERED: FUROSEMIDE 40 MG TABLET PO ONE (08:00)
[2016-12-19] MEDS: DILTIAZEM HCL 120 MG CAP.SR.24H PO SCH (08:23)
[2016-12-19] MEDS: RIFAXIMIN 550 MG TABLET PO SCH ×2 (08:23→17:59)
[2016-12-19] MEDS: LACTULOSE SYRUP 20 GM/30 ML UDCUP PO SCH (08:24)
[2016-12-19] MEDS ORDERED: TRAMADOL HCL 50 MG TABLET PO ONE (09:00)
[2016-12-19] MEDS: SPIRONOLACTONE 25 MG TABLET PO SCH (13:49)
[2016-12-19] MEDS: DIGOXIN 0.125 MG TABLET PO SCH (13:50)
[2016-12-19] MEDS: NADOLOL 40 MG TABLET PO SCH (13:50)
--- NOTE | 2016-12-19 15:59 | PROGRESS NOTE E ---
Progress Note NAME: TYLER ARIAS : 1960 AGE: 56Y DATE: 12/19/2016 ROOM: 322 SUBJECTIVE: The patient is lying in bed. He states he feels a little better today. He still complains of abdominal tightness. I explained to him that he cannot have a repeat paracentesis at this time; the patient has already had 3 since admission. The patient denies any nausea, vomiting or diarrhea. No shortness of breath, dizziness, chest pain. No fevers or chills. The patient has been afebrile. Blood pressure has been in a good range. The patient does not voice any other concerns at this time. REVIEW OF SYSTEMS: The rest of review of systems is negative. MEDICATIONS: Medications have been reviewed. OBJECTIVE: GENERAL: The patient is a 56-year-old male, who is awake, alert. He is oriented to person and place, not fully oriented to situation, has poor insight. He does not appear to be in acute distress. VITAL SIGNS: As follows: Temperature 98, pulse 102, respirations 18, blood pressure 103/75, oxygen saturation 100% on room air. SKIN: Warm and dry. No rash. Not diaphoretic. HEENT: Pupils are equal, round and reactive to light and accommodation. Conjunctivae are pale, sclerae are icteric. There is no mouth lesions. No JVP. CARDIOVASCULAR SYSTEM: Heart is irregularly irregular. There is no rub. CHEST: Clear, symmetrical and unlabored. ABDOMEN: Distended, without any area of focal tenderness. EXTREMITIES: No clubbing or cyanosis. There is no edema or redness, overall is much improved. DIAGNOSTICS: Laboratory values are as follows: Chemistry obtained on 12/16/2016: Sodium 134, potassium 3.7, chloride 106, carbon dioxide 19, BUN 25, creatinine 1.68, glucose 108, calcium 7.6, magnesium 2.0. IMPRESSION AND PLAN: 1. ALCOHOLIC CIRRHOSIS WITH ASCITES. The patient has already had 3 paracenteses since admission. The patient is on as much diuretic as his blood pressure can handle at this time. Do appreciate Palliative Care input. Will follow. 2. CELLULITIS OF BILATERAL LOWER EXTREMITIES. This is resolving. Will complete oral antibiotics. 3. HEPATORENAL SYNDROME. The patient's creatinine overall has been stable. 4. ATRIAL FIBRILLATION. The patient is rate controlled. Continue current medications. 5. PREVIOUS UMBILICAL HERNIA REPAIR. This was apparently months ago and the sutures are still in place. Surgery did evaluate yesterday and recommended leaving sutures in place given that there is no evidence of infection and follow. DISPOSITION: The patient is a DNR/DNI. The patient can be discharged as soon as a disposition is made. Time spent on this followup including assessment, plan, physical examination and patient education is 20 minutes. DICTATING PHYSICIAN: MARYANA WASHBURN NP [id number] PHY#: [id number] ID: [id number] JOB#: [id number] ACCT: [id number] cc: >
[2016-12-19] MEDS: TRAMADOL HCL 50 MG TABLET PO PRN (17:02)
[2016-12-19] MEDS ORDERED: FUROSEMIDE 40 MG TABLET ONE (17:20)
[2016-12-19] MEDS ORDERED: RIFAXIMIN 550 MG TABLET ONE (17:21)
[2016-12-19] MEDS: FUROSEMIDE 40 MG TABLET PO SCH (17:59)
[2016-12-19] MEDS: ZOLPIDEM TARTRATE 5 MG TABLET PO PRN (22:09)
[2016-12-19] MEDS ORDERED: AMOXICILLIN TR/POT CLAVULANATE 500-125 MG TAB ONE (22:33)
[2016-12-20] MEDS: AMOXICILLIN TR/POT CLAVULANATE 500-125 MG TAB PO SCH ×3 (05:08→21:59)
[2016-12-20] MEDS: LANSOPRAZOLE 30 MG TAB.RAP.DR PO SCH ×2 (05:08→18:10)
[2016-12-20] MEDS ORDERED: HYDROMORPHONE HCL INJ/PF 2 MG/ML AMPULE ONE ×2 (05:21→06:09)
[2016-12-20 06:03] LABS: HEMOGLOBIN 9.7 g/dL (13.5-17.0); HGB HCT DIFFERENCE 0.1; MEAN CORPUSCULAR HEMOGLOBIN 29.9 pg (27.0-33.4); MEAN CORPUSCULAR HGB CONC 33.5 g/dL (32.0-36.0); MEAN CORPUSCULAR VOLUME 89 fl (80-97); RED BLOOD COUNT 3.26 10^6/uL (4.35-5.55); RED CELL DISTRIBUTION WIDTH 15.3 % (11.5-14.0); WHITE BLOOD COUNT 13.2 10^3/uL (4.0-10.5)
[2016-12-20 06:23] LABS: ANION GAP 11 (5-19); BLOOD UREA NITROGEN 25 mg/dL (7-20); CALCIUM 7.6 mg/dL (8.4-10.2); CARBON DIOXIDE 20 mmol/L (22-30); CHLORIDE 104 mmol/L (98-107); GLUCOSE 131 mg/dL (75-110); MAGNESIUM 1.9 mg/dL (1.6-2.3); POTASSIUM 3.8 mmol/L (3.6-5.0); SODIUM 135.2 mmol/L (137-145)
[2016-12-20] MEDS: RIFAXIMIN 550 MG TABLET PO SCH ×2 (09:58→18:09)
[2016-12-20] MEDS: LACTULOSE SYRUP 20 GM/30 ML UDCUP PO SCH (09:58)
--- NOTE | 2016-12-20 10:18 | PROGRESS NOTE E ---
Progress Note NAME: TYLER ARIAS : 1960 AGE: 56Y DATE: 12/20/2016 ROOM: 212 SUBJECTIVE: The patient is currently sitting on the side of the bed. He states that he feels better today. The patient is excited about going to rehab. He denies any nausea, vomiting, diarrhea. No shortness of breath, dizziness, or chest pain. No fevers, chills. The patient has been afebrile. Blood pressure has been in a good range. Does complain of some abdominal pain, which is not unusual for him, and the patient does not voice any other concerns at this time. REVIEW OF SYSTEMS: Rest of review of systems negative. MEDICATIONS: Medications have been reviewed. OBJECTIVE: GENERAL: The patient is a 56-year-old male who is awake, alert, and oriented to person, place, time, and situation, just a little delayed. He does not appear to be in acute distress. He is forgetful. VITAL SIGNS: Temperature is 97.9, pulse 103, respirations 15, blood pressure is 107/70, oxygen saturation is 99% on room air. SKIN: Jaundiced. Multiple areas of bruising, skin tears. He is not diaphoretic. HEENT: Pupils are equal, round, and reactive to light and accommodation. Conjunctiva is pale. There is no JVP. CARDIOVASCULAR SYSTEM: Heart is irregularly irregular. There is no rub. CHEST: Clear, symmetrical, unlabored. ABDOMEN: Full of ascites. No area of focal tenderness. BACK: No CVA tenderness or sacral edema. EXTREMITIES: No clubbing, cyanosis, edema. Cellulitis to lower extremities have much improved. PSYCHIATRIC: Appropriate affect, pleasant mood, just not very insightful. DIAGNOSTICS: Lab values are as follows: Hematology obtained on 12/20/2016: WBCs are 13.2, hemoglobin is 9.7, hematocrit is 29.0, platelet count is 238,000. Chemistry obtained on 12/20/2016: Sodium is 135, potassium 3.8, chloride is 104, carbon dioxide 20, BUN 25, creatinine is 0.7, glucose 131, calcium is 7.6. Magnesium is 1.9, ammonia is 8.7. IMPRESSION AND PLAN: 1. ALCOHOLIC CIRRHOSIS WITH ASCITES. The patient has already had 3 paracenteses since admission. He is on as much diuretic as his blood pressure can handle at this time. Do appreciate palliative care input with this. Will follow. 2. CELLULITIS OF BILATERAL LOWER EXTREMITIES, RESOLVING. Continue oral antibiotic. 3. HEPATORENAL SYNDROME. The patient's creatinine overall is stable. 4. ATRIAL FIBRILLATION. The patient is rate controlled. Will continue current medication. 5. PREVIOUS UMBILICAL HERNIA REPAIR. This was done months ago and the sutures are still in place. Surgery evaluated this and recommended leaving the sutures in place unless the patient developed evidence of local infection. DISPOSITION: The patient is a DO NOT RESUSCITATE/DO NOT INTUBATE. Pending patient's symptomatology and diagnostic findings, he can go to rehab as soon as a bed is available. Time spent on this followup including assessment, plan, physical examination, patient education is 20 minutes. DICTATING PHYSICIAN: MARYANA WASHBURN NP [id number] [id number] PHY#: [id number] ID: [id number] JOB#: [id number] ACCT: [id number] cc: >
[2016-12-20] MEDS: DILTIAZEM HCL 120 MG CAP.SR.24H PO SCH (11:28)
[2016-12-20] MEDS: FUROSEMIDE 40 MG TABLET PO SCH ×2 (11:29→18:10)
[2016-12-20] MEDS: SPIRONOLACTONE 25 MG TABLET PO SCH (13:54)
[2016-12-20] MEDS: DIGOXIN 0.125 MG TABLET PO SCH (13:55)
[2016-12-20] MEDS: NADOLOL 40 MG TABLET PO SCH (14:04)
[2016-12-20] MEDS: TRAMADOL HCL 50 MG TABLET PO PRN (14:18)
[2016-12-20] MEDS: ZOLPIDEM TARTRATE 5 MG TABLET PO PRN (21:58)
--- NOTE | 2016-12-20 22:33 | Progress Note ---
Provider Note Provider Note: Palliative care follow up visit 12/20/16 11:15-11:20 Am 12/20/16 S: Brief follow up visit witht his 56 year old man who suffers with end stage liver disease. he has had three paracentesis, but ascites is not localized and only 1100 ml was removed last week during the last one. He has also undergone a surgical evaluation of healed wound from hernia repair where some sutures were palpated and irritating his skin. He reports that the area feels much better now. Mr. Chaudhary is awaiting transfer to [facility]. He is hoping to go today or tomorrow at the latest. He is still very uncomfortable with pressure from ascites. But he is alert and oriented, with more energy and abiltiy to carry on conversation. he denies pain and only has respiratory problems due to pressure of ascites. O: Awake, alert, cheerful. No distress and denies pain. Bandaids on lower abd wall from suture removal and no tenderness at site or redness. Abd is very firm and distended with ascites on all of right side, a little softer on left lower side. Color remains pink with no noted jaundice. Movement and generalized strength are improved. No edema lower extremities. A/P; Continued need for care and will need continued paracentesis. Patient agreeable to SNF and says he feels comfortable going there since he was there before. No pain or other symptoms to address at present. Patient wants to continue DNR , so [place] DNR form given to nurse to place on chart for transfer to SNF. Appreciate opportunity to participate in care fo this patient.
[2016-12-21] MEDS: AMOXICILLIN TR/POT CLAVULANATE 500-125 MG TAB PO SCH (06:32)
[2016-12-21] MEDS: LANSOPRAZOLE 30 MG TAB.RAP.DR PO SCH ×2 (06:32→22:35)
[2016-12-21] MEDS: LACTULOSE SYRUP 20 GM/30 ML UDCUP PO SCH (09:34)
[2016-12-21] MEDS: DIGOXIN 0.125 MG TABLET PO SCH (09:36)
[2016-12-21] MEDS: FUROSEMIDE 40 MG TABLET PO SCH ×2 (09:37→22:35)
[2016-12-21] MEDS: DILTIAZEM HCL 120 MG CAP.SR.24H PO SCH (09:37)
[2016-12-21] MEDS: RIFAXIMIN 550 MG TABLET PO SCH (09:38)
[2016-12-21] MEDS: NADOLOL 40 MG TABLET PO SCH (09:38)
[2016-12-21] MEDS: SPIRONOLACTONE 25 MG TABLET PO SCH (09:42)
--- NOTE | 2016-12-21 11:48 | PROGRESS NOTE E ---
Progress Note NAME: TYLER ARIAS : 1960 AGE: 56Y DATE: 12/21/2016 ROOM: 212 SUBJECTIVE: The patient is out of bed. He states that he is feeling better today. The patient has once again asked about a paracentesis, and I instructed him at our previous conversations. Patient is awaiting a bed at rehab. The patient denies any nausea, vomiting, diarrhea. No shortness of breath, dizziness, or chest pain. No fevers, chills. The patient has been afebrile. Blood pressure has been in a good range. Patient does not voice any other concerns at this time. REVIEW OF SYSTEMS: Rest of review of systems negative. MEDICATIONS: Medications have been reviewed. OBJECTIVE: GENERAL: The patient is a 56-year-old male who is awake, alert. He is oriented. Extremely forgetful. Does not appear to be in acute distress. VITAL SIGNS: As follows: Temperature is 98.0, pulse 108, respirations 20, blood pressure is 110/71, oxygen saturation is 100% on room air. SKIN: Is warm and dry. No rash. No diaphoretic. HEENT: Pupils are equal, round, and reactive to light and accommodation. Conjunctivae are pink. No JVP. CARDIOVASCULAR SYSTEM: Heart is regular. There is no murmur or rub. CHEST: Clear, symmetrical, unlabored. ABDOMEN: Is ascitic. Bowel sounds are present. BACK: No CVA tenderness, sacral edema. EXTREMITIES: No clubbing, cyanosis, edema. DIAGNOSTICS: Lab values are as follows: Hematology obtained on 12/20/2016: WBCs are 13.2, hemoglobin 9.7, hematocrit is 29.9, platelet count is 238,000. Chemistry obtained on 12/19/2016: Sodium is 135, potassium 3.5, chloride is 104, carbon dioxide 20, BUN 25, creatinine is 0.70, glucose 131, calcium is 7.6. Magnesium is 1.9. Ammonia is 8.7. IMPRESSION AND PLAN: 1. ALCOHOLIC CIRRHOSIS WITH ASCITES. Patient has already had 3 paracenteses since admission. The patient does have to be compliant with his fluid restriction, which is difficult for him, as well as his diuretic therapy. The patient is on as much diuretic as his pressure can handle at this time. The patient's paracenteses are complicate; the patient has multiple areas of encapsulated fluid and it is much difficult to drain. Do appreciate palliative care input with this. 2. CELLULITIS OF BILATERAL LOWER EXTREMITIES. THIS IS RESOLVING. 3. HEPATORENAL SYNDROME. Creatinine is overall is stable. 4. ATRIAL FIBRILLATION. THE PATIENT IS RATE CONTROLLED. Continue current medication. 5. PREVIOUS UMBILICAL HERNIA REPAIR. This was done months ago and the patient forgot all about it. Sutures were in place. Surgery has evaluated and recommends leaving the sutures in place unless the patient develops evidence of a local infection. DISPOSITION: The patient is a DNR/DNI. The patient can go to rehab as soon as a bed is available. TIME SPENT ON THIS FOLLOWUP: Including assessment, plan, physical examination, patient education is 15 minutes. DICTATING PHYSICIAN: MARYANA WASHBURN NP [id number] [id number] PHY#: [id number] ID: [id number] JOB#: [id number] ACCT: [id number] cc: > MTDD
--- NOTE | 2016-12-21 18:43 | TRANSFER SUMMARY E ---
Transfer Summary NAME: TYLER ARIAS : 1960 AGE: 56Y ADMITTED: 12/10/2016 TRANSFERRED: 12/21/2016 CODE STATUS: DO NOT RESUSCITATE/DO NOT INTUBATE. PRIMARY CARE PROVIDER: Judy Toure PA-C CONSULTING SURGICALIST: Is Bessie Perez MD DISCHARGE DIAGNOSES INCLUDE: 1. ALCOHOLIC CIRRHOSIS WITH RECURRENT ASCITES. 2. CELLULITIS OF BILATERAL LOWER EXTREMITIES. 3. HEPATORENAL SYNDROME. 4. ATRIAL FIBRILLATION. 5. STATUS POST REMOTE UMBILICAL HERNIA REPAIR WITH RETAINED SUTURES. 6. ALCOHOL-INDUCED DEMENTIA. 7. MEDICAL NONCOMPLIANCE. 8. ESOPHAGEAL VARICES. TRANSFER MEDICATIONS: Include: 1. Xifaxan 550 mg p.o. b.i.d. 2. Cardizem 120 mg p.o. daily. 3. Nadolol 10 mg p.o. daily. 4. Spironolactone 50 mg p.o. daily. 5. Lasix 40 mg p.o. b.i.d. 6. Lactulose 20 mg p.o. daily. 7. Prevacid 30 mg p.o. b.i.d. DIET: Low protein ACTIVITY: Per rehab standards. DIAGNOSTICS: Lab values are as follows. Hematology obtained on 12/20/2016: WBCs are 11.1, hemoglobin 9.7, hematocrit is 29.0, platelet count is 238,000. Coagulation obtained on 12/13/2016: PT is 15.7, INR is 1.17. Chemistry obtained on 12/20/2016: Sodium is 135, potassium 3.6, chloride is 104, carbon dioxide 20, BUN 25, creatinine is 0.70, glucose 131. Lactic acid is 1.0. Calcium 7.6. Magnesium is 1.9. Bilirubin is 1.1. AST 21, ALT is 25. Alk phos 68. Ammonia is less than 8.7. BNP is 5200. Total protein 5.3, albumin 2.3. Urinalysis obtained on 12/10/2016: Color yellow, appearance clear. Specific gravity is 1.016. Protein: Negative. Glucose: Negative. Ketones: Negative. Occult blood negative. Nitrite: Negative. Bilirubin: Negative. Urobilinogen: Is negative. Leukocyte esterase is negative. WBCs 0. RBCs 0. Casts 3. Mucus rare. Ascorbic acid is negative. Microbiology obtained on 12/10/2016. Blood cultures are negative. Gram stain obtained on 12/10/2016: Reveals no growth. Chest x-ray obtained on 12/10/2016: Revealed a left pleural effusion, left basilar atelectasis. Paracentesis obtained on 12/10/2016: Nine liters of fluid was removed. Paracentesis on 12/13/2016: Revealed a total of 5450 mL off. Paracentesis obtained on 12/16/2016: Removed 1150 mL of fluid. HISTORY OF PRESENT ILLNESS: The patient is a 56-year-old male with a past medical history of alcoholic cirrhosis. The patient presented to the emergency department with a chief complaint of bilateral lower extremity edema and redness. The patient also felt that his extremities were hot and possibly had cellulitis. The patient was last on our service 6 weeks ago, in which he had a paracentesis that included 9 L of fluid removal, and another for 5 L of fluid removal. The patient stated that he had abstained from alcohol since the previous admission. The patient was discharged on Aldactone and Lasix but states that he had not been taking them over the past several days because they caused him to urinate a lot. The patient noted abdominal pain and distention that had been ever increasing over the past 2 weeks. The patient also noted nausea, vomiting, and forgetfulness. Given findings that are consistent with cellulitis, the patient was referred to the hospitalist for admission and management. HOSPITAL COURSE: Patient was admitted to [facility]. The patient underwent 3 separate paracenteses. The patient's draining has been difficult given that his fluid has been compartmentalized in areas and requires manual manipulation in order for the patient to drain. Explained this to the patient, regarding scar tissue and so forth, and have explained the importance of fluid restriction and medication compliance to prevent this from being a recurrent issue. However, the patient is not very compliant with his fluid restriction. The patient's course is also complicated by his persistent forgetfulness in that the patient is unable to retain previous conversations from just hours before. The patient had been recommended, and had been seen and evaluated by palliative care. Patient declines hospice at this time, stating that he wants to make it to age 62 even though the patient will acknowledge that he does have end-stage liver disease, and the patient would like to go to rehab. Therefore, the patient has worked with therapies and is qualified for rehab. The patient has received a large amount of education regarding his need for medication compliance as addressed above, especially with the patient's ammonia level. The patient does not like taking lactulose given that it "causes him to have diarrhea." The patient has been instructed that the goal is for him to have 3 loose bowel movements a day in an effort to retain his ammonia at a decent level. In order to lessen the patient's lactulose burden, I have added Xifaxan for now, which has seemed to have made a benefit. The patient's creatinine is relatively stable. The patient apparently underwent umbiical hernia repair at [facility] at an undetermined date. It appears that most likely this was months ago, given that the patient's sutures have completely enclosed and are barely visible. Dr. Perez, with surgicalist, graciously agreed to evaluate the patient and felt that given the patient's abdominal distention and ascites that should forego any surgical intervention to the area, unless it shows a localized area of the infection. This is noted. PHYSICAL EXAMINATION: GENERAL: On examination, the patient is a frail chronically-ill appearing 56-year-old male who is awake, alert, and oriented to place, time; not fully oriented to situation. Does not have much insight but does not appear to be in any acute distress. VITAL SIGNS: Vital signs as follows: Temperature is 97.9, pulse 58 respirations 20, blood pressure 102/72, oxygen saturation is 98% on room air. SKIN: Is jaundiced, with multiple areas of bruising and ecchymosis, but warm. HEENT: Pupils equal, round, reactive to light and accommodation. Conjunctivae pale. Sclerae mildly icteric. There is no JVP. CARDIOVASCULAR: Heart is irregularly, irregular. There is no murmur, rub. CHEST: Is clear, symmetrical, unlabored, but diminished. ABDOMEN: Is distended with ascites fluid wave present, but no areas of local tenderness. BACK: There is no sacral edema. EXTREMITIES: No clubbing, cyanosis, or edema. Redness of cellulitis has improved. PSYCHIATRIC: Appropriate affect, pleasant mood. DISCHARGE PLANNING: The patient will be received to the services of [facility]. TIME SPENT ON THIS TRANSFER: Including assessment, plan, physical examination, patient education, and resource alignment is 35 minutes. DICTATING PHYSICIAN: MARYANA WASHBURN NP [id number] [id number] PHY#: [id number] ID: [id number] JOB#: [id number] ACCT: [id number] cc:MARYANA WASHBURN NP > [facility]
[2016-12-21] MEDS: ZOLPIDEM TARTRATE 5 MG TABLET PO PRN (21:51)
[2016-12-22] MEDS: LANSOPRAZOLE 30 MG TAB.RAP.DR PO SCH (05:30)
[2016-12-22] MEDS: TRAMADOL HCL 50 MG TABLET PO PRN ×2 (05:45→15:07)
[2016-12-22] MEDS: LACTULOSE SYRUP 20 GM/30 ML UDCUP PO SCH (09:28)
[2016-12-22] MEDS: FUROSEMIDE 40 MG TABLET PO SCH (09:29)
[2016-12-22] MEDS: NADOLOL 40 MG TABLET PO SCH (09:31)
[2016-12-22] MEDS: SPIRONOLACTONE 25 MG TABLET PO SCH (09:31)
[2016-12-22] MEDS: DILTIAZEM HCL 120 MG CAP.SR.24H PO SCH (09:31)
[2016-12-22] MEDS: DIGOXIN 0.125 MG TABLET PO SCH (09:32)
[2016-12-22 14:14] VITALS: BP 101/68
== END 2016-12-22 15:39 | DRG 432 ==
LOC: ER 03:54 → EH 07:40 → UNDOADMIN 08:08 → 3W 11:33 → 2N 12-19 16:13
PROVIDERS: ADMIT Internal Medicine; ATTEND Internal Medicine
PROC: 0W9G3ZX Drainage of Peritoneal Cavity, Percutaneous Approach, Diagnostic (ICD-10-PCS; principal; 2016-12-10)
PROC: 3E0F73Z Introduction of Anti-inflammatory into Respiratory Tract, Via Natural or Artificial Opening (ICD-10-PCS; 2016-12-10)
PROC: 0W9G3ZX Drainage of Peritoneal Cavity, Percutaneous Approach, Diagnostic (ICD-10-PCS; 2016-12-13)
PROC: 0W9G3ZX Drainage of Peritoneal Cavity, Percutaneous Approach, Diagnostic (ICD-10-PCS; 2016-12-16)
DX: K70.31 Alcoholic cirrhosis of liver with ascites (principal); K76.7 Hepatorenal syndrome; L03.116 Cellulitis of left lower limb; L03.115 Cellulitis of right lower limb; I85.10 Secondary esophageal varices without bleeding; E72.4 Disorders of ornithine metabolism; N17.9 Acute kidney failure, unspecified; Z51.5 Encounter for palliative care; I48.0 Paroxysmal atrial fibrillation; F10.97 Alcohol use, unspecified with alcohol-induced persisting dementia; I25.10 Atherosclerotic heart disease of native coronary artery without angina pectoris; I10 Essential (primary) hypertension; K21.9 Gastro-esophageal reflux disease without esophagitis; M19.90 Unspecified osteoarthritis, unspecified site; J44.9 Chronic obstructive pulmonary disease, unspecified; Z60.2 Problems related to living alone; Z66 Do not resuscitate; Z91.19 Patient's noncompliance with other medical treatment and regimen; Z79.899 Other long term (current) drug therapy; Z88.2 Allergy status to sulfonamides; Z86.73 Personal history of transient ischemic attack (TIA), and cerebral infarction without residual deficits; Z96.651 Presence of right artificial knee joint; Z82.49 Family history of ischemic heart disease and other diseases of the circulatory system
CPT/HCPCS: 36415; 49083; 71020; 80048; 80053; 80202; 81001; 82140; 83605; 83735; 83880; 85025; 85027; 85610; 85730; 87040; 87070; 87075; 87205; 89050; 96365; 99284; A9270-GY; C1769; J1170; J1335; J2543; J3370; J3480; J3490; J7060; P9047

== ENCOUNTER 2017-02-10 07:10 | Day surgery (SDC) | payer OTHER ==
[~2017-02-10 07:10] MED LIST changes: -ALBUMIN HUMAN 250 ML IV PRN; +ALBUMIN HUMAN 300 ML IV PRN
[2017-02-10 07:42] LABS: HEMATOCRIT 26.5 % (37.9-51.0); HEMOGLOBIN 8.8 g/dL (13.5-17.0); HGB HCT DIFFERENCE -0.1; MEAN CORPUSCULAR HEMOGLOBIN 28.6 pg (27.0-33.4); MEAN CORPUSCULAR HGB CONC 33.1 g/dL (32.0-36.0); MEAN CORPUSCULAR VOLUME 86 fl (80-97); RED BLOOD COUNT 3.07 10^6/uL (4.35-5.55); RED CELL DISTRIBUTION WIDTH 16.5 % (11.5-14.0); WHITE BLOOD COUNT 11.1 10^3/uL (4.0-10.5)
[2017-02-10 07:57] LABS: BLOOD UREA NITROGEN 17 mg/dL (7-20); CREATININE RESULT 1.32 mg/dL (0.52-1.25); PROTHROMBIN TIME 15.2 SEC (11.4-15.4)
[2017-02-10 08:06] LABS: PARTIAL THROMBOPLASTIN TIME 35.1 SEC (23.5-35.8)
--- NOTE | 2017-02-10 11:21 | RADIOLOGY REPORT (SQ) ---
EXAM DESCRIPTION: U/S ABD PARACENTESIS COMPLETED DATE/TIME: 02/10/2017 10:55 am REASON FOR STUDY: ASCITES COMPARISON MRI abdomen 08/17/2016 Prior paracentesis 09/13/2016, 12/10/2016, 12/13/2016, 12/16/2016 LIMITATIONS: None. PROCEDURE: After obtaining informed consent, the patient was brought to the ultrasound suite. The p rocedure was performed with the patient on a gurney. Ultrasound was used to identify a prominent poc ket of ascites in the right lower quadrant. An appropriate access site was selected. The patient wa s prepped and draped in usual sterile fashion. The access site was anesthetized with 4.5 mL 1% lido skylar. A Upmy-Y-Flyqtaer needle was advanced into the fluid. After aspiration of fluid the needle, the catheter was advanced off the needle into the fluid. A total of 7,700 mL of clear straw-colored fluid was removed. The patient tolerated the procedure well left the department in satisfactory condi tion. No testing on the fluid. Patient received IV albumin post procedure. IMPRESSION: Successful ultrasound-guided therapeutic paracentesis COMMENT: Patient medication list reviewed: Yes- Quality ID# [id number]:Eligible professional attests to doc umenting in the medical record they obtained, updated, or reviewed the patient's current medications. Quality ID #[id number]: The patient was prepped and draped using maximum sterile barrier technique including cap, mask, sterile gown, sterile gloves, a large sterile sheet, hand hygiene, and 2% Chlorhexidine fo r cutaneous antisepsis. When ultrasound is used, sterile ultrasound techniques are followed requiring sterile gel and sterile probes. Quality ID #[id number]: Final reports for procedures using fluoroscopy that document radiation exposure baljinder sixto, or exposure time and number of fluorographic images (if radiation exposure indices are not avail able) TECHNICAL DOCUMENTATION: JOB ID: [id number] [email or web address]- All Rights Reserved
[2017-02-10 12:39] VITALS: BP 121/80
== END 2017-02-10 12:39 | disposition home or self-care (01) ==
LOC: RAD 07:10
PROVIDERS: ATTEND Internal Medicine Gastroenterology
PROC: 0W9F3ZZ Drainage of Abdominal Wall, Percutaneous Approach (ICD-10-PCS; principal; 2017-02-10)
DX: K70.31 Alcoholic cirrhosis of liver with ascites (principal); I10 Essential (primary) hypertension; F10.20 Alcohol dependence, uncomplicated; I85.00 Esophageal varices without bleeding; R60.0 Localized edema; I48.91 Unspecified atrial fibrillation; F17.220 Nicotine dependence, chewing tobacco, uncomplicated; Z88.2 Allergy status to sulfonamides; Z79.899 Other long term (current) drug therapy; Z79.82 Long term (current) use of aspirin
CPT/HCPCS: 36415; 84520; 82565; 85027; 85610; 85730; 49083; P9047

== ENCOUNTER → 2017-03-09 | Day surgery (SDC) | payer OTHER ==
[~2017-03-09] MED LIST changes: +ALBUMIN HUMAN 250 ML IV PRN; -ALBUMIN HUMAN 300 ML IV PRN
[2017-03-09 07:40] LABS: HEMATOCRIT 26.2 % (37.9-51.0); HEMOGLOBIN 9.1 g/dL (13.5-17.0); HGB HCT DIFFERENCE 1.1; MEAN CORPUSCULAR HGB CONC 34.6 g/dL (32.0-36.0); MEAN CORPUSCULAR VOLUME 87 fl (80-97); RED BLOOD COUNT 3.02 10^6/uL (4.35-5.55); RED CELL DISTRIBUTION WIDTH 16.8 % (11.5-14.0); WHITE BLOOD COUNT 11.3 10^3/uL (4.0-10.5)
[2017-03-09 07:49] LABS: PROTHROMBIN TIME 15.1 SEC (11.4-15.4)
[2017-03-09 07:50] LABS: PARTIAL THROMBOPLASTIN TIME 38.4 SEC (23.5-35.8)
[2017-03-09 07:53] LABS: BLOOD UREA NITROGEN 14 mg/dL (7-20); CREATININE RESULT 1.13 mg/dL (0.52-1.25)
--- NOTE | 2017-03-09 11:21 | RADIOLOGY REPORT (SQ) ---
EXAM DESCRIPTION: U/S ABD PARACENTESIS COMPLETED DATE/TIME: 03/09/2017 10:51 am REASON FOR STUDY: ASCITES COMPARISON 02/10/2017 LIMITATIONS: None. PROCEDURE: After obtaining informed consent, the patient was brought to the ultrasound suite. The p rocedure was performed with the patient on a gurney. Ultrasound was used to identify a prominent poc ket of ascites in the right lower quadrant. An appropriate access site was selected. The patient wa s prepped and draped in usual sterile fashion. The access site was anesthetized with 7 mL 1% lidoca ine. A Aman-G-Fvemxzdn needle was advanced into the fluid. After aspiration of fluid the needle, th e catheter was advanced off the needle into the fluid. A total of 8,000 mL of clear straw-colored fl uid was removed. The patient tolerated the procedure well left the department in satisfactory conditi on. No testing on the fluid. IMPRESSION: Successful ultrasound-guided paracentesis COMMENT: Patient medication list reviewed: Yes- Quality ID# [id number]:Eligible professional attests to doc umenting in the medical record they obtained, updated, or reviewed the patient's current medications. Quality ID #[id number]: The patient was prepped and draped using maximum sterile barrier technique including cap, mask, sterile gown, sterile gloves, a large sterile sheet, hand hygiene, and 2% Chlorhexidine fo r cutaneous antisepsis. When ultrasound is used, sterile ultrasound techniques are followed requiring sterile gel and sterile probes. Quality ID #[id number]: Final reports for procedures using fluoroscopy that document radiation exposure baljinder sixto, or exposure time and number of fluorographic images (if radiation exposure indices are not avail able) TECHNICAL DOCUMENTATION: JOB ID: [id number] [employer]- All Rights Reserved
[2017-03-09 12:35] VITALS: BP 113/72
== END ==
LOC: RAD 07:02
PROVIDERS: ATTEND Internal Medicine Gastroenterology
PROC: 0W9G3ZZ Drainage of Peritoneal Cavity, Percutaneous Approach (ICD-10-PCS; principal; 2017-03-09)
DX: K70.31 Alcoholic cirrhosis of liver with ascites (principal); R18.8 Other ascites; I10 Essential (primary) hypertension; I48.91 Unspecified atrial fibrillation; Z88.2 Allergy status to sulfonamides
CPT/HCPCS: 36415; 84520; 82565; 85027; 85610; 85730; 49083; P9047